=== PATIENT | male | born 1965 | race Caucasian/White ===

== ENCOUNTER 2020-04-14 09:26 | Outpatient (REF) | payer BC, SELFPAY | END 2020-04-14 09:27 | disposition home or self-care (01) | LOC: HO.LAB 09:26 | PROVIDERS: PCP Internal Medicine; Visit Provider Internal Medicine | DX: Z20.828 Contact with and (suspected) exposure to other viral communicable diseases (principal) | CPT/HCPCS: C9803; U0003 ==

== ENCOUNTER 2021-01-12 07:27 | Outpatient (REF) | payer BC, SELFPAY ==
--- NOTE | ~2021-01-12 | XR_ITS ---
EXAMINATION: XR ELBOW, RIGHT CLINICAL INFORMATION: Right elbow pain COMPARISON: None TECHNIQUE: AP, lateral, and oblique views of the right elbow. FINDINGS: The bones and soft tissues are normal. No fracture or joint effusion. Alignment is anatomic. Joint spaces are maintained. XR/XR elbow RT 2V IMPRESSION: Normal right elbow.
[2021-01-12 07:55] LABS: MANUAL DIFF FLAG NO
[2021-01-12 08:05] LABS: Estimated Average Glucose 105 mg/dL; Hemoglobin A1c % 5.3 %
[2021-01-12 08:08] LABS: Basophils Percent Auto 0.4 % (0-2); Eosinophils Absolute Auto 0.1 X10*3/uL (0.0-0.4); Eosinophils Percent Auto 2.7 % (0-4); Hemoglobin 14.3 g/dl (14.0-18.0); Imm Gran Abs Auto 0.01 X10*3/uL (0.00-0.03); Imm Gran Pct Auto 0.2 % (0.0-0.4); Lymphocytes Absolute Auto 1.7 X10*3/uL (1.2-4.9); Lymphocytes Percent Auto 34.2 % (20-40); Mean Corpuscular Hemoglobin 29.4 pg (27.0-33.0); Mean Corpuscular Volume 86.2 fL (80-98); Mean Platelet Volume 8.9 fL (9.4-12.4); Monocytes Absolute Auto 0.4 X10*3/uL (0.1-1.2); Monocytes Percent Auto 8.7 % (2-11); Neutrophils Absolute Auto 2.6 X10*3/uL (2.0-8.3); Neutrophils Percent Auto 53.8 % (45-73); Platelet Count 224 X10*3/uL (160-400); Red Blood Count 4.87 X10*6/uL (4.60-5.80); Red Cell Distribution Width 13.2 % (11.0-16.0); White Blood Count 4.9 X10*3/uL (4.8-10.8)
[2021-01-12 08:22] LABS: Alanine Aminotransferase 17 U/L (0-40); Albumin Level 4.2 g/dL (3.5-5.0); Alkaline Phosphatase 73 U/L (39-117); Anion Gap 11 (12-20); Aspartate Amino Transferase 13 U/L (5-37); Bilirubin Total 0.6 mg/dL (0.0-1.0); Blood Urea Nitrogen 19 mg/dL (9-16); Calcium 9.6 mg/dL (8.4-10.2); Carbon Dioxide 27 mmol/L (22-29); Chloride 106 mmol/L (96-108); Cholesterol 243 mg/dL; Estimated Glomerular Filt Rate > 60; Glucose Random 97 mg/dL (60-115); HDL Cholesterol 56 mg/dL; LDL Cholesterol Calculated 153 mg/dl; Potassium 4.9 mmol/L (3.3-5.1); Sodium 139 mmol/L (135-145); Total Protein 6.9 g/dL (6.5-8.0); Triglycerides 174 mg/dL
[2021-01-12 08:44] LABS: Free T4 (Free Thyroxine) 1.04 ng/dL (0.71-1.85); Prostate Specific Antigen Scr 0.68 ng/mL (<0.05-4.0); Thyroid Stimulating Hormone 1.04 uIU/mL (0.32-4.0)
[2021-01-12 08:59] LABS: Folate 11.2 ng/mL (> or = 4.0); Vitamin B12 504 pg/mL (200-900)
== END 2021-01-12 07:28 | disposition home or self-care (01) ==
LOC: HO.XRAY 07:27
PROVIDERS: PCP Internal Medicine; Visit Provider Internal Medicine
DX: R73.02 Impaired glucose tolerance (oral) (principal); E78.00 Pure hypercholesterolemia, unspecified; M25.521 Pain in right elbow
CPT/HCPCS: 36415; 73070; 80053; 80061; 82607; 82746; 83036; 84153; 84439; 84443; 85025

== ENCOUNTER 2022-02-12 09:58 | Outpatient (REF) | payer BC, SELFPAY ==
--- NOTE | ~2022-02-12 | XR_ITS ---
EXAMINATION: XR lumbar spine 2-3V CLINICAL INFORMATION: Reason for Exam M54.50 - Low back pain, unspecified COMPARISON: None TECHNIQUE: 3 views of the lumbar spine FINDINGS: 5 nonrib-bearing lumbar-type vertebral bodies. Vertebral body heights are maintained. Alignment is maintained. Mild multilevel degenerative disc disease with loss of disc space height and lower lumbosacral facet arthropathy. Paravertebral soft tissues are unremarkable. XR/XR lumbar spine 2-3V IMPRESSION: * Mild spondylosis of the lumbar spine, as above detailed.
== END 2022-02-12 09:59 | disposition home or self-care (01) ==
LOC: HO.XRAY 09:58
PROVIDERS: PCP Internal Medicine; Visit Provider Internal Medicine
DX: M54.50 Low back pain, unspecified (principal)
CPT/HCPCS: 72100

== ENCOUNTER 2022-03-08 10:00 | Outpatient (RCR) | payer BC, SELFPAY ==
--- NOTE | 2022-04-15 09:48 | MHC.PT.DC ---
[facility] [place] Office [place] Office [place] Office [address] Rudi Carvajal [address] [phone] F: [phone] F: [phone] F: [phone] F: [phone] Physical Therapy Discharge Report Diagnosis: Low back pain Date of Surgery: N/A Date of Evaluation: 01/16/22 Date of Discharge: 04/15/22 Treatments to Date: 12 Cancellations to Date: No Shows to Date: Discharge Status: Discharge Summary: At last attended visit he reports he was more sore and stiff. He has kept on low back stretches and core strength. Following treatment with traction he stands in lumbar neutral and reports pain is much less in his back compared to when he came into PT. Symptoms are suspicious for disc herniation and pt is to follow up with MD for MRI results. We have not hear from Manav to schedule additional visits so exact status is unknow. As he has not been to our office for greater than 30 days we will close the current chart and if he requires additional therapy we will re-evaluate at that time. Electronically signed by: Geneva Montgomery PT, DPT Please sign and return to therapist. Thank you for your referral.
== END 2022-04-15 09:48 | disposition home or self-care (01) ==
LOC: HO.PT 10:00
PROVIDERS: PCP Internal Medicine; Visit Provider Internal Medicine
DX: M54.6 Pain in thoracic spine (principal)
CPT/HCPCS: 97012; 97110; 97140; 97161; 97530

== ENCOUNTER 2022-03-08 17:54 | Outpatient (REF) | payer BC, SELFPAY ==
--- NOTE | ~2022-03-08 | MR_ITS ---
EXAMINATION: MR LUMBAR SPINE WITHOUT CONTRAST CLINICAL INFORMATION: 56-year-old with low back pain, unspecified. Self-reported history of back injuries. COMPARISON: None TECHNIQUE: MRI of the lumbar spine was obtained using routine sequences without contrast. FINDINGS: Coronal Alignment: Normal. Sagittal Alignment: Prominent lordotic curvature centered at L3-L4 with trace retrolisthesis at L2-L3 and L1-L2. No spondylolisthesis or spondylolysis. Lumbosacral Junction: Normal. 5 csw-mic-geqgrad lumbar-type vertebral bodies. Vertebral Bodies: Normal height. Disc Spaces and Endplates: Ehrr-ym-rqjxlrwd disc volume loss at L4-L5 and L5-S1 with disc desiccation and gwvv-ef-rmrfynoo spondylosis at these levels. Mild disc volume loss at L3-L4 with mild disc desiccation and mild spondylosis. Disc desiccation at L1-L2 and L2-L3 with mild disc space height loss at L2-L3 with Schmorl's nodes and moderate spondylosis. Spinal Canal: No abnormal developmental findings. Bone Marrow: No significant marrow-replacing process or bone marrow edema. Conus Medullaris: Terminates at T12. Morphology and signal is normal. Intradural Nerve Roots: Crowding of the intradural nerve roots at L3-L4 consistent with spinal stenosis. Otherwise within normal limits. L5-S1: Mild disc bulging asymmetric to the left without thecal sac encroachment. Rnoa-cz-hsjzgwwj left-sided and addbhvga-co-qsezex right-sided facet arthropathy without significant canal or neuroforaminal stenosis. L4-L5: Diffuse disc bulging and superimposed broad-based central disc protrusion with mild flattening of the ventral dural sac is noted. There is ligamentum flavum thickening with jrwbtbuc-bv-vsffsq bilateral facet arthropathy and mild central canal stenosis, with crowding of the subarticular zones bilaterally, with probable encroachment on the traversing left L5 nerve root in the subarticular zone. Moderate left-sided and cjyzszfr-px-gsgeyx right-sided neuroforaminal stenosis is noted with impingement on the exiting right L4 nerve root. Facet spurring contacts the exiting left L4 nerve root as well. L3-L4: Diffuse disc bulging with a superimposed right paramedian to subarticular extruded disc herniation with mild cephalad migration, with flattening of the ventral dural sac asymmetric to the right. Ligamentum flavum thickening and severe bilateral facet arthropathy is noted with a slightly prominent dorsal epidural fat pad. There is dnydbrat-xg-vpxksr central spinal canal stenosis with crowding of the intradural nerve roots and there is subarticular recess stenosis, right more than left, with disc herniation probably impinging on the traversing right L4 nerve root. There is probably some degree of compromise of the left L4 nerve root in the subarticular zone as well. There is thlfoqkm-ur-twdulo right-sided and moderate left-sided neuroforaminal stenosis, with impingement on the exiting right L3 nerve root and to a lesser degree the left L3 nerve root. L2-L3: Trace retrolisthesis at this level, with mild disc bulging and a superimposed left-sided foraminal/extraforaminal disc herniation. There is ligamentum flavum thickening, with mild right-sided and zcktclci-gp-szeuat left-sided facet arthrosis without significant canal stenosis. There is mild foraminal narrowing bilaterally without exiting neural impingement. L1-L2: Trace retrolisthesis noted with slight flattening of the ventral dural sac and mild left-sided facet arthrosis without significant canal stenosis. Mild foraminal narrowing noted bilaterally without neural impingement. T12-L1: Normal disc contour. Qztf-pd-tntrgcka facet arthrosis, left more than right, without canal or neuroforaminal stenosis. There is urkc-kj-sskrwxcm facet arthropathy right more than left at T11-T12. Paraspinal/Retroperitoneal: The paravertebral soft tissues appear unremarkable. There are bony productive changes along the anterior margins of the SI joints bilaterally, left more than right with bridging osteophytosis. MR/MR lumbar spine wo con IMPRESSION: 1. Somewhat exaggerated lordotic curvature noted, with trace degrees of retrolisthesis at L1-L2 and L2-L3 without spondylolisthesis or spondylolysis. 2. Multilevel DDD and spondylosis as detailed by level above, with multilevel disc bulging and disc herniations associated with extensive multilevel bilateral facet arthropathy and multilevel ligamentum flavum thickening. There is rgmhymcq-oo-vhgopb spinal canal stenosis at L3-L4 with crowding of the intradural nerve roots and mild spinal canal stenosis at L4-L5. Bilateral subarticular recess stenosis is noted at these levels with a right subarticular disc herniation at L3-L4 likely impinging on the traversing right L4 nerve root and left-sided subarticular stenosis impinging on the traversing left L5 nerve root. 3. Multilevel bilateral neuroforaminal stenosis as detailed by level above with impingement on the exiting right L3 and L4 nerve roots and to a lesser degree the left L3 and L4 nerve roots. See above for details.
--- NOTE | ~2022-03-08 | XR_ITS ---
EXAMINATION: XR ORBITS CLINICAL INFORMATION: Pre-MRI. COMPARISON: None. TECHNIQUE: Chacko (gaze up and gaze down) and lateral views of the orbits were obtained. FINDINGS: There is no fracture. No bone, joint or soft tissue abnormality is demonstrated. The sinuses are clear, without mucosal thickening or air-fluid level. No free radiopaque foreign body seen. XR/XR pre mri screening IMPRESSION: 1. Unremarkable examination of the orbits pre-MRI, without free radiopaque foreign body seen.
== END 2022-03-08 17:55 | disposition home or self-care (01) ==
LOC: HO.MRI 17:54
PROVIDERS: Visit Provider Internal Medicine
DX: M54.50 Low back pain, unspecified (principal); M47.816 Spondylosis without myelopathy or radiculopathy, lumbar region; M51.36 Other intervertebral disc degeneration, lumbar region; M48.061 Spinal stenosis, lumbar region without neurogenic claudication
CPT/HCPCS: 72148

== ENCOUNTER 2022-04-13 07:41 | Emergency (ER) | payer BC, SELFPAY ==
[2022-04-13 07:45] VITALS: BP 133/87; PULSE 62; RESP 18; TEMP 36.7; O2SAT 99; BMI 28.8
--- NOTE | 2022-04-13 08:01 | ED.GENADULT ---
HPI - General Adult General Chief complaint: Skin/Abscess/Foreign Body Stated complaint: quest of hernia Time Seen by Provider: 04/13/22 07:58 Source: patient Mode of arrival: ambulatory Limitations: no limitations History of Present Illness HPI narrative: Patient is a 56 yo assigned male at w/ no significant PMHx presents w/ a 10 day hx of a groin lump. He reports that it came about spontaneously w/ no known hx of cut or injury to the area. He endorses having pain in the area while walking around but reports that the pain goes away when he is at rest. He has not used any interventions to help w/ his symptoms. He reports that he was diagnosed w/ an incidental inguinal hernia 2-3 years ago for which he has not had any complications or symptoms from. He denies any recent fevers, chills, cough, runny nose, sore throat, SOB, or chest pain. He states that he has never had anything like this in the past. He denies any IV drug use. Onset (ago): day(s) (109) Location: pelvis Radiation: non-radiation Severity: mild Severity scale (1-10): 2 Quality: dull Pain Consistency: intermittent Relieving factors: none Exacerbating factors: none Associated symptoms: denies other symptoms Treatments prior to arrival: none Related Data Previous Rx's Medication Instructions Recorded cyclobenzaprine 10 mg tablet 10 mg PO BEDTIME #14 tabs 12/24/21 meloxicam 15 mg tablet 15 mg PO DAILY 30 days #30 tabs 02/12/22 Allergies Allergy/AdvReac Type Severity Reaction Status Date / Time No Known Allergies Allergy Verified 02/12/22 09:33 Review of Systems Constitutional: Constitutional: Reports no additional constitutional complaints, Denies chills, Denies fever(s) and Denies night sweats Eyes: Eyes: Reports no additional eye complaints ENT: Denies dizziness Cardiovascular: Cardiovascular: Reports no additional cardiovascular complaints, Denies chest pain, Denies lightheadedness and Denies dyspnea Respiratory: Respiratory: Reports no additional respiratory complaints and Denies dyspnea Gastrointestinal: Gastrointestinal: Reports no additional gastrointestinal complaints and Denies abdominal pain Genitourinary: Genitourinary: Reports no additional male genitourinary complaints, Denies hematuria, Denies dysuria and Denies urinary urgency Musculoskeletal: Musculoskeletal: Reports no additional musculoskeletal complaints Integumentary/Breasts: Comments: small area of redness to upper groin Neurologic: Denies dizziness Psychiatric: Psychiatric: Reports no additional psychiatric complaints Endocrine: Endocrine: Reports no additional endocrine complaints Hematologic/Lymphatic: Hematologic/Lymphatic: Reports no additional hematologic/lymphatic complaints Allergic/Immunologic: Allergic/Immunologic: Reports no additional allergic/immunologic complaints [facility] Past Medical History Attestation statement: The following information was validated with the patient. Source: old records reviewed Medical History Constipation DDD (degenerative disc disease), thoracolumbar DVT (deep venous thrombosis) GERD (gastroesophageal reflux disease) Hypercholesterolemia Impaired glucose tolerance Lower thoracic back pain Vitamin D deficiency Surgical History Rupture of left Achilles tendon Family History Family History Father Esophageal cancer Maternal Grandfather Lung cancer Social History Social History Housing: House Alcohol intake: current Patient Tobacco Use Status: Never used Tobacco e-Cigarette/Vaping Use: Never Used Second Hand Smoke Exposure: No Advance Directives: No Advance Directives Information Provided: No service: No Current occupational status: employed Cognitive needs: No Hearing needs: No Vision needs: Yes Physical Exam ED Vital Signs: Vital Signs - 24 hr 04/13/22 07:45 Temperature 98.1 F Pulse Rate 62 Respiratory Rate 18 Blood Pressure 133/87 Pulse Oximetry 99 Oxygen Delivery Method Room Air BMI result Body Mass Index 28.8 Const General: healthy appearing, comfortable and no acute distress Nutritional Appearance: average body habitus and well nourished Orientation/consciousness: patient oriented x3 Limitations: no limitations [facility] Head: Yes normal to inspection Ears: hearing grossly normal bilaterally General nose exam: Normal external nose present Face and sinus: Yes normal facial exam, No abrasion and No laceration Mouth: Normal oral and palatal mucosa present, no drooling and no muffled voice Eyes General: appearance normal, both eyes and all related structures Periorbital: periorbital findings normal Eyelids: Yes eyelids normal Conjunctivae: conjunctivae normal Pupils: Equal, round and reactive pupils present EOM: EOMs intact bilaterally Neck Neck: Yes normal visual inspection, Yes full ROM and Yes no lymphadenopathy Chest Chest palpation & inspection: normal inspection of the chest Resp Effort & Inspection: normal respiratory effort and able to speak in complete sentences Auscultation: clear to auscultation bilaterally Cardio Rate: regular rate Rhythm: regular rhythm GI Inspection: Yes normal to inspection Palpation (GI): Soft to palpation, not firm, nontender, no guarding and not rigid Male General Exam: Yes normal external exam, Yes erythema (area of induration and warmth to palpation ), No hernia and No inguinal lymphadenopathy Male genitals images: 1. [id number] circular area of erythema and induration Skin General skin exam: no rashes or lesions noted (no other lesions noted except as above) Neuro General: patient oriented x3 Cranial nerves: Yes Equal, round and reactive pupils present Cognition (Neuro): normal cognition Motor exam (neuro): 5/5 motor strength present throughout Sensory Exam: Normal double simultaneous stimulation for sensation Coordination: mljpye-zr-tyxm test normal Extrem General: Yes normal to inspection, Yes full ROM and Yes capillary refill normal Psych Appearance: grossly normal Mental Status: mental status grossly normal Affect: normal affect Attitude: cooperative Thought process: Normal thought process present Thought content: Normal thought content present Insight: Good insight present (Psych) Medical Decision Making MDM Narrative Medical decision making narrative: Pt is 56 yo assigned male at w/ a 10 day hx of a groin lesion that is painful w/ walking and other movement. His physical exam is most consistent w/ a groin abscess vs. cyst. The lesion is approx 2cm x 2cm located along the waist band of his underwear. The lesion is erythematous and indurated w/o evidence of a pustular head and no area of fluctuance. Pt was educated on the diagnosis and instructed to apply warm compresses to the area and not attempt to rupture it on his own when it does come to a head. I stressed the importance of the patient following up with his primary care provider. I stressed the importance of the patient returning to the emergency department immediately if his symptoms were to worsen or if he were to develop any dizziness, shortness of breath, difficulty breathing, chest pain, blurry vision, loss of vision, nausea, vomiting, abdominal pain, fever, chills, back pain, or any other complaints. Patient verbalized agreement and understanding with this treatment plan and discharge. Discharge Plan Discharge Clinical Impression: Cyst Patient Disposition: Home, Self-Care Instructions: Cyst (ED) Additional Instructions: Apply warm compresses to the area. Follow up with your primary care provider. Return to the emergency department immediately if your symptoms worsen or if you develop any dizziness, shortness of breath, difficulty breathing, chest pain, blurry vision, loss of vision, nausea, vomiting, abdominal pain, fever, chills, back pain, or any other complaints. Prescriptions: No Action cyclobenzaprine 10 mg tablet 10 mg PO BEDTIME Qty: 14 0RF meloxicam 15 mg tablet 15 mg PO DAILY 30 Days Qty: 30 0RF Referrals: Po,José Miguel Prabhakar MD [Primary Care Provider] - Print Language: Maltese
== END 2022-04-13 09:01 | disposition home or self-care (01) ==
PROVIDERS: Emergency Provider Emergency Medicine; PCP Internal Medicine
DX: L02.214 Cutaneous abscess of groin (principal)
CPT/HCPCS: 99282

== ENCOUNTER 2022-04-24 16:20 | Outpatient (REF) | payer BC, SELFPAY | END 2022-04-24 16:21 | disposition home or self-care (01) | LOC: HO.LNP 16:20 | PROVIDERS: Visit Provider Surgery | DX: L02.211 Cutaneous abscess of abdominal wall (principal); L72.3 Sebaceous cyst | CPT/HCPCS: 10060; 87070; 87205 ==

== ENCOUNTER → 2022-05-10 11:03 | Outpatient (BNVA) | payer BC, SELFPAY | PROVIDERS: PCP Internal Medicine; Referring Provider Internal Medicine; Visit Provider Surgery | DX: L02.91 Cutaneous abscess, unspecified (principal) ==

== ENCOUNTER → 2022-05-15 09:42 | Outpatient (BNVA) | payer BC, SELFPAY | PROVIDERS: PCP Internal Medicine; Referring Provider Internal Medicine; Visit Provider Surgery | DX: L02.211 Cutaneous abscess of abdominal wall (principal) ==

== ENCOUNTER → 2022-07-09 09:20 | Outpatient (BNVA) | payer BC, SELFPAY | PROVIDERS: PCP Internal Medicine; Visit Provider Surgery | DX: Z13.89 Encounter for screening for other disorder (principal) ==

== ENCOUNTER 2022-07-30 08:44 | Outpatient (REF) | payer BC, SELFPAY ==
[2022-07-30 08:51] LABS: MANUAL DIFF FLAG NO
[2022-07-30 09:21] LABS: Basophils Percent Auto 0.6 % (0-2); Eosinophils Absolute Auto 0.1 X10*3/uL (0.0-0.4); Eosinophils Percent Auto 2.6 % (0-4); Hematocrit 44.4 % (42.0-52.0); Hemoglobin 15.1 g/dl (14.0-18.0); Lymphocytes Absolute Auto 1.8 X10*3/uL (1.2-4.9); Lymphocytes Percent Auto 37.8 % (20-40); Mean Corpuscular Hemoglobin 29.1 pg (27.0-33.0); Mean Corpuscular Volume 85.5 fL (80.0-98.0); Mean Platelet Volume 9.1 fL (9.4-12.4); Monocytes Absolute Auto 0.4 X10*3/uL (0.1-1.2); Neutrophils Absolute Auto 2.4 x10*3/uL (2.0-8.3); Platelet Count 224 X10*3/uL (160-400); Red Blood Count 5.19 X10*6/uL (4.60-5.80); Red Cell Distribution Width 13.5 % (11.0-16.0); White Blood Count 4.6 X10*3/uL (4.8-10.8)
[2022-07-30 09:46] LABS: Alanine Aminotransferase 14 U/L (0-40); Albumin Level 4.4 g/dL (3.5-5.0); Alkaline Phosphatase 69 U/L (39-117); Anion Gap 14 (12-20); Aspartate Amino Transferase 15 U/L (5-37); Bilirubin Total 1.1 mg/dL (0.0-1.0); Blood Urea Nitrogen 17 mg/dL (9-16); Calcium 9.1 mg/dL (8.4-10.2); Carbon Dioxide 28 mmol/L (22-29); Chloride 107 mmol/L (96-108); Cholesterol 222 mg/dL; Estimated Glomerular Filt Rate > 60; Glucose Random 83 mg/dL (60-115); HDL Cholesterol 54 mg/dL; LDL Cholesterol Calculated 146 mg/dl; Sodium 144 mmol/L (135-145); Total Protein 6.8 g/dL (6.5-8.0); Triglycerides 110 mg/dL
[2022-07-30 09:56] LABS: Estimated Average Glucose 108 mg/dL; Hemoglobin A1c % 5.4 %
[2022-07-30 10:11] LABS: Folate 12.8 ng/mL (> or = 4.0); Free T4 (Free Thyroxine) 0.94 ng/dL (0.71-1.85); Prostate Specific Antigen Scr 0.96 ng/mL (<0.05-4.0); Vitamin B12 410 pg/mL (200-900)
== END 2022-07-30 08:45 | disposition home or self-care (01) ==
LOC: HO.LAB 08:44
PROVIDERS: PCP Internal Medicine; Visit Provider Internal Medicine
DX: Z12.5 Encounter for screening for malignant neoplasm of prostate (principal); K21.9 Gastro-esophageal reflux disease without esophagitis; R73.02 Impaired glucose tolerance (oral); E78.00 Pure hypercholesterolemia, unspecified
CPT/HCPCS: 36415; 80053; 80061; 82607; 82746; 83036; 84153; 84439; 84443; 85025

== ENCOUNTER 2023-01-15 10:11 | Outpatient (AMB) | payer BC, SELFPAY ==
[2023-01-15 10:18] VITALS: BP 118/74; PULSE 55; O2SAT 98; BMI 26.5
--- NOTE | 2023-01-15 10:18 | A.OFFPC_ITS ---
Vital Signs 01/15/23 10:18 Height 5 ft 9 in Weight 179 lb 4 oz BMI 26.5 BP 118/74 Blood Pressure Location Lt brachial Position Sitting Pulse 55 Pulse Source Pulse Oximeter Pulse Oximetry (%) 98 Oxygen Delivery Method Room Air Intake Visit Reasons: Hypercholesterolemia Intake Note: Pt is here for F/U on Hypercholesterolemia. Vehicle Service Attendant Required: No Accompanied by: Self / Same As Patient Allergies No Known Allergies Allergy (Verified 01/15/23 10:29) Tobacco use date assessed: 07/05/22 Dental Screening Dental Screen Date: 01/15/23 Did you have a dental visit in the last 12 months?: Yes Did you have a dental problem in the last 6 months where you did not have access to dental care?: No Was dental information given to patient?: Patient has dentist HPI Hypercholesterolemia HPI Details 57-year-old overweight male with GERD impaired glucose tolerance hypercholesterolemia low back pain coming in for follow-up. Patient was last seen in June 2022. Colonoscopy was last done in 2016 review of the notes in June was seen by surgeon for a necrotic groin infected sebaceous cyst. Well-healed excision site on the back patient had seborrheic keratosis no evidence of inclusion cyst. Noted an irregular skin lesion on the upper back between the shoulder blades question of melanoma in May patient had cervical spine procedure under neurosurgeon metallic probe over the L3-L4 interspace.. seen dermatology scan - biopsy done negative but will need ff up scan- [place] derm. [facility] Medical History Constipation DDD (degenerative disc disease), thoracolumbar DVT (deep venous thrombosis) GERD (gastroesophageal reflux disease) Hypercholesterolemia Impaired glucose tolerance Lower thoracic back pain Vitamin D deficiency Surgical History Rupture of left Achilles tendon Family History Father Esophageal cancer Maternal Grandfather Lung cancer Paternal Grandmother CVA (cerebral vascular accident) Social History Housing: House Alcohol intake: current Patient Tobacco Use Status: Never used Tobacco e-Cigarette/Vaping Use: Never Used Second Hand Smoke Exposure: No service: No Current occupational status: employed Cognitive needs: No Hearing needs: No Vision needs: Yes Questionnaire Thrive Questionnaire Date Thrive assessed: 07/05/22 DARLENE-7 AMB Questionnaire DARLENE-7 Date DARLENE - 7 assessed: 07/05/22 Source: Developed by Drs. Francisco J Meyer, Sosa Rivera, Jakob Barrientos and colleagues, with an educational ramos from [employer]. Physical exam (Primary Care) Vital Signs: Last Vital Signs Pulse 55 01/15/23 10:18 BP 118/74 01/15/23 10:18 Pulse Ox 98 01/15/23 10:18 Oxygen Delivery Method Room Air 01/15/23 10:18 BMI result Body Mass Index 26.5 Tobacco/Smoking Status: Tobacco use Status Tobacco use date assessed 07/05/22 01/15/23 10:23 Patient Tobacco Use Status Never used Tobacco 01/15/23 10:23 e-Cigarette/Vaping Use Never Used 01/15/23 10:23 Thrive Assessment: Date of Thrive Assessment Date Thrive assessed 07/05/22 01/15/23 10:23 Const General: alert; No acute distress Eyes Conjunctivae: conjunctivae normal Resp Auscultation: clear to auscultation bilaterally Cardio Rate: regular rate Rhythm: regular rhythm GI Inspection: Yes normal to inspection Extrem General: Yes normal to inspection and No edema Assessment and Plan Assessment & Plan (1) Hypercholesterolemia: Code(s): E78.00 - Pure hypercholesterolemia, unspecified Plan: Avoid fried foods, chicken skin, eggs, butter margarine, pastries and meat. Be it pork or beef they have a lot of cholesterol LDL goal of less than 130 and triglyceride of less than 150. July 2022 last blood work since then patient has lost a lot of weight intentionally and is doing good. Will have to retest (2) Impaired glucose tolerance: Code(s): R73.02 - Impaired glucose tolerance (oral) Plan: Decrease the amount of carbohydrate intake, pasta, bread, rice and potatoes are all sugar and that is aside from all the sweet stuff, remember that fruits are good but they are Sweet also. (3) GERD (gastroesophageal reflux disease): Code(s): K21.9 - Gastro-esophageal reflux disease without esophagitis Plan: Avoid the foods that causes that usually spicy foods, tomato products, juices, coffee, soda and foods that your sensitive to. After eating do not lie down, allow 3-4 hours before in lie down. And keep the head of bed above 30 degrees to avoid the acid from going up. (4) Overweight (BMI 25.0-29.9): Code(s): E66.3 - Overweight Plan: Diet and exercise (5) Radicular low back pain: Comment: Februaryomewhat exaggerated lordotic curvature noted, with trace degrees of retrolisthesis at L1-L2 and L2-L3 without spondylolisthesis or spondylolysis. 2. Multilevel DDD and spondylosis as detailed by level above, with multilevel disc bulging and disc herniations associated with extensive multilevel bilateral facet arthropathy and multilevel ligamentum flavum thickening. There is xyvhbxqb-gt-anvhmo spinal canal stenosis at L3-L4 with crowding of the intradural nerve roots and mild spinal canal stenosis at L4-L5. Bilateral subarticular recess stenosis is noted at these levels with a right subarticular disc herniation at L3-L4 likely impinging on the traversing right L4 nerve root and left-sided subarticular stenosis impinging on the traversing left L5 nerve root. 3. Multilevel bilateral neuroforaminal stenosis as detailed by level above with impingement on the exiting right L3 and L4 nerve roots and to a lesser degree the left L3 and L4 nerve roots. See above for details. Code(s): M54.10 - Radiculopathy, site unspecified Plan: Patient had procedure under neurosurgeon in May 2022. Patient has been very active and doing really good (6) Multiple pigmented nevi: Code(s): D22.9 - Melanocytic nevi, unspecified Plan: Dermatology referral biopsy done negative results continue to follow-up for surveillance Orders: Orders Comprehensive Met. Panel Today E78.00 - Pure hypercholesterolemia, unspecified Lipid Panel Today E78.00 - Pure hypercholesterolemia, unspecified Prostate Specific Antigen Scr Today E78.00 - Pure hypercholesterolemia, unspecified Free T4 (Free Thyroxine) Today E78.00 - Pure hypercholesterolemia, unspecified Thyroid Stimulating Hormone Today E78.00 - Pure hypercholesterolemia, unspecified Complete Blood Count Auto Diff Today E78.00 - Pure hypercholesterolemia, unspecified Hemoglobin A1c Today R73.02 - Impaired glucose tolerance (oral) Coding Level of Care Code Est Pt Level 4 (67711) Diagnoses Hypercholesterolemia E78.00 Impaired glucose tolerance R73.02 GERD (gastroesophageal reflux disease) K21.9 Overweight (BMI 25.0-29.9) E66.3 Radicular low back pain M54.10 Multiple pigmented nevi D22.9
== END 2023-01-15 10:53 | disposition home or self-care (01) ==
PROVIDERS: PCP Internal Medicine; Visit Provider Internal Medicine
DX: E78.00 Pure hypercholesterolemia, unspecified (principal); R73.02 Impaired glucose tolerance (oral); K21.9 Gastro-esophageal reflux disease without esophagitis; E66.3 Overweight; M54.10 Radiculopathy, site unspecified; D22.9 Melanocytic nevi, unspecified
CPT/HCPCS: 99214

== ENCOUNTER 2023-07-07 07:38 | Outpatient (REF) | payer BC, SELFPAY ==
[2023-07-07 07:54] LABS: MANUAL DIFF FLAG NO
[2023-07-07 08:23] LABS: Basophils Percent Auto 0.5 % (0-2); Eosinophils Absolute Auto 0.2 X10*3/uL (0.0-0.4); Eosinophils Percent Auto 3.2 % (0-4); Hematocrit 43.9 % (42.0-52.0); Imm Gran Abs Auto 0.03 X10*3/uL (0.00-0.03); Imm Gran Pct Auto 0.5 % (0.0-0.4); Lymphocytes Absolute Auto 1.8 X10*3/uL (1.2-4.9); Mean Corpuscular HGB Conc 34.2 g/dl (31.0-36.0); Mean Corpuscular Hemoglobin 29.4 pg (27.0-33.0); Mean Corpuscular Volume 86.1 fL (80.0-98.0); Mean Platelet Volume 8.6 fL (9.4-12.4); Monocytes Absolute Auto 0.5 X10*3/uL (0.1-1.2); Neutrophils Absolute Auto 3.2 x10*3/uL (2.0-8.3); Neutrophils Percent Auto 55.8 % (45-73); Platelet Count 245 X10*3/uL (160-400); Red Cell Distribution Width 13.2 % (11.0-16.0); White Blood Count 5.7 X10*3/uL (4.8-10.8)
[2023-07-07 08:37] LABS: Estimated Average Glucose 94 mg/dL; Hemoglobin A1c % 4.9 % (<6.0)
[2023-07-07 09:12] LABS: Alanine Aminotransferase 17 U/L (0-40); Albumin Level 4.2 g/dL (3.5-5.0); Alkaline Phosphatase 65 U/L (39-117); Anion Gap 14 (12-20); Aspartate Amino Transferase 17 U/L (5-37); Bilirubin Total 0.8 mg/dL (0.0-1.0); Blood Urea Nitrogen 19 mg/dL (9-16); Calcium 9.6 mg/dL (8.4-10.2); Carbon Dioxide 24 mmol/L (22-29); Chloride 104 mmol/L (96-108); Cholesterol 230 mg/dL (<200); Estimated Glomerular Filt Rate > 60; Glucose Random 87 mg/dL (60-115); HDL Cholesterol 53 mg/dL (>40); LDL Cholesterol Calculated 151 mg/dL (<100); Potassium 4.4 mmol/L (3.3-5.1); Sodium 138 mmol/L (135-145); Total Protein 7.5 g/dL (6.5-8.0); Triglycerides 131 mg/dL (<150)
[2023-07-07 09:17] LABS: Prostate Specific Antigen Scr 0.86 ng/mL (<0.05-4.0)
[2023-07-07 09:19] LABS: Free T4 (Free Thyroxine) 0.91 ng/dL (0.71-1.85)
== END 2023-07-07 07:39 | disposition home or self-care (01) ==
LOC: HO.LAB 07:38
PROVIDERS: PCP Internal Medicine; Visit Provider Internal Medicine
DX: Z12.5 Encounter for screening for malignant neoplasm of prostate (principal); E78.00 Pure hypercholesterolemia, unspecified; R73.02 Impaired glucose tolerance (oral)
CPT/HCPCS: 36415; 80053; 80061; 83036; 84153; 84439; 84443; 85025

== ENCOUNTER 2023-07-10 08:55 | Outpatient (AMB) | payer BC, SELFPAY ==
[2023-07-10 09:04] VITALS: BP 140/82; PULSE 63; O2SAT 98; BMI 27.2
--- NOTE | 2023-07-10 09:04 | MHC.PC.OV ---
Vital Signs 07/10/23 09:04 Height 5 ft 9 in Weight 184 lb BMI 27.2 BP 140/82 H Blood Pressure Location Lt brachial Position Sitting Pulse 63 Pulse Source Pulse Oximeter Pulse Oximetry (%) 98 Oxygen Delivery Method Room Air Intake Visit Reasons: physical Intake Note: Patient is here today for a physical. Image Editor Required: No Allergies No Known Allergies Allergy (Verified 07/10/23 09:04) Medication List - Last Reconciled 07/10/23 by José Miguel Castro MD No Known Home Meds Tobacco use date assessed: 07/10/23 Dental Screening Dental Screen Date: 07/10/23 Did you have a dental visit in the last 12 months?: Yes Did you have a dental problem in the last 6 months where you did not have access to dental care?: No Was dental information given to patient?: Patient has dentist HPI physical HPI Details 58-year-old overweight male with impaired glucose tolerance hypercholesterolemia GERD history of low back pain status post surgery coming in for physical exam last seen in December 2022. Colonoscopy last done in June 2016. mom got diagnoses with colon cancer aand the pateint will be seeing Dr. Armstrong July 21, 2023. insomnia and snoring. tiredne sleeping while watching tc, after eating , no nap. , no sleep in the car. [facility] Medical History (Updated 07/10/23 @ 09:41 by José Miguel Castro MD) Lower thoracic back pain DDD (degenerative disc disease), thoracolumbar DVT (deep venous thrombosis) GERD (gastroesophageal reflux disease) Vitamin D deficiency Constipation Impaired glucose tolerance Hypercholesterolemia Surgical History (Updated 07/10/23 @ 09:51 by José Miguel Castro MD) H/O lumbosacral spine surgery Rupture of left Achilles tendon Family History (Updated 07/10/23 @ 09:32 by José Miguel Castro MD) Father Esophageal cancer Maternal Grandfather Lung cancer Paternal Grandmother CVA (cerebral vascular accident) Mother Colon cancer, Onset Age: 80 Social History (Updated 07/10/23 @ 09:40 by José Miguel Castro MD) Housing: House Alcohol intake: current Comment: once a month 2 beers Patient Tobacco Use Status: Never used Tobacco e-Cigarette/Vaping Use: Never Used Second Hand Smoke Exposure: No service: No Current occupational status: employed Cognitive needs: No Hearing needs: No Vision needs: Yes Questionnaire PHQ-9 Over the last 2 weeks, how often have you been bothered by any of the following problems? 1. Little interest or pleasure in doing things: not at all 2. Feeling down, depressed, or hopeless: not at all 3. Trouble falling or staying asleep, or sleeping too much: not at all 4. Feeling tired or having little energy: not at all 5. Poor appetite or overeating: not at all 6. Feeling bad about yourself - or that you are a failure or have let yourself or your family down: not at all 7. Trouble concentrating on things, such as reading the newspaper or watching television: not at all 8. Moving or speaking so slowly that other people could have noticed. Or the opposite - being so fidgety or restless that you have been moving around a lot more than usual: not at all 9. Thoughts that you would be better off or of hurting yourself in some way: not at all Total score: 0 Depression Screening Interpretation: Negative Depression Screening Done: Yes Source: Developed by Drs. Francisco J Meyer, Sosa Rivera, Jakob Barrientos and colleagues, with an educational ramos from [employer]. Thrive Questionnaire Date Thrive assessed: 07/05/22 I am a: Patient What is your living situation today?: I have a steady place to live Within the past 12 months, did the food you bought not last and you didn't have the money to get more?: Never true Within the past 12 months, did you worry whether your food would run out before you got money to buy more?: Never true Do you have trouble paying for medicines?: No Do you have trouble getting transportation to medical appointments?: No Do you have trouble paying your heating and electricity bill?: No Do you have trouble taking care of your child, family member or friend?: No Do you have trouble with day-to-day activities such as bathing, preparing meals, shopping, managing finances, etc.?: No Are you currently unemployed and looking for a job?: No Are you interested in more education?: No Please select the resources that you would like help with: None THRIVE Score: 0 AUDIT C Alcohol Use Questionnaire (AUDIT-C) 1. How often do you have a drink containing alcohol?: Monthly or less 2. How many drinks containing alcohol do you have on a typical day when you are drinking?: 1 or 2 3. How often do you have six or more drinks on one occasion?: Never Total Score: 1 DARLENE-7 AMB Questionnaire DARLENE-7 Date DARLENE - 7 assessed: 07/10/23 Feeling nervous, anxious, or on edge: 0 = Not at all Not being able to stop or control worryin = Not at all Worrying too much about different things: 0 = Not at all Trouble relaxin = Not at all Being so restless that it is hard to sit still: 0 = Not at all Becoming easily annoyed or irritable: 0 = Not at all Feeling afraid as if something awful might happen: 0 = Not at all Total DARLENE-7 score (0-4 normal; 5-9 mild; 10-14 moderate; 15-21 severe): 0 Source: Developed by Drs. Francisco J Meyer, Sosa Rivera, Jakob Barrientos and colleagues, with an educational ramos from [employer]. Review of Systems Const Denies poor appetite and Denies weakness Eyes Denies no additional complaints ENT Reports Normal hearing present, Denies dizziness, Denies nasal congestion, Denies tinnitus and Denies sore throat Card Denies chest pain, Denies syncope, Denies rapid heart rate and Denies dyspnea Resp Denies cough and Denies dyspnea GI Denies change in stool character, Reports constipation, Denies diarrhea, Denies nausea and Denies vomiting Denies dysuria and Denies urinary frequency Neuro Reports Normal hearing present, Denies confusion, Denies dizziness, Denies syncope and Denies weakness Psych Denies confusion Physical exam (Primary Care) Vital Signs: Last Vital Signs Pulse 63 07/10/23 09:04 BP 140/82 H 07/10/23 09:04 Pulse Ox 98 07/10/23 09:04 Oxygen Delivery Method Room Air 07/10/23 09:04 BMI result Body Mass Index 27.2 Tobacco/Smoking Status: Tobacco use Status Tobacco use date assessed 07/10/23 07/10/23 09:06 Patient Tobacco Use Status Never used Tobacco 07/10/23 09:06 e-Cigarette/Vaping Use Never Used 07/10/23 09:06 PHQ-9: PHQ-9 Score PHQ-9: Total score 0 07/10/23 09:12 Depression Screening Interpretation: Negative Thrive Assessment: Date of Thrive Assessment Date Thrive assessed 07/05/22 07/10/23 09:06 Const General: No confusion Orientation/consciousness: No confusion HENMT Head: Yes normocephalic Ears: external ears normal and TM's normal bilaterally Face and sinus: Yes normal facial exam Mouth: moist mucous membranes Throat: Yes tonsils normal Eyes Conjunctivae: conjunctivae normal Pupils: Equal, round and reactive pupils present and Pupil accommodation reflex normal Direct Ophthalmoscopy: normal light reflex Neck Neck: No lymphadenopathy Thyroid: Thyroid normal Chest Chest palpation & inspection: normal inspection of the chest Resp Effort & Inspection: normal respiratory effort and no audible wheezes Auscultation: clear to auscultation bilaterally, no crackles, no wheezes and lung sounds not diminished Cardio Rate: regular rate Rhythm: regular rhythm Peripheral pulses: radial pulses present and dorsalis pedis present GI Palpation (GI): no masses Auscultation: normal bowel sounds and normoactive bowel sounds Rectal Exam - Male: Yes deferred Skin General skin exam: no rashes or lesions noted Rashes: no rashes Neuro General: No confusion Cranial nerves: Yes Equal, round and reactive pupils present and Yes Normal hearing present Cognition (Neuro): normal cognition Gait exam (Neuro): Normal gait present Motor exam (neuro): 5/5 motor strength present throughout Deep tendon reflexes (DTR's): Right brachioradialis reflex intensity grade: 2+, Left brachioradialis reflex intensity grade: 2+, Right patellar reflex intensity grade: 2+ and Left patellar reflex intensity grade: 2+ Extrem General: No edema Assessment and Plan Assessment & Plan (1) Annual physical exam: Code(s): Z00.00 - Encounter for general adult medical examination without abnormal findings (2) Impaired glucose tolerance: Code(s): R73.02 - Impaired glucose tolerance (oral) Plan: Decrease the amount of carbohydrate intake, pasta, bread, rice and potatoes are all sugar and that is aside from all the sweet stuff, remember that fruits are good but they are Sweet also. (3) Hypercholesterolemia: Code(s): E78.00 - Pure hypercholesterolemia, unspecified Plan: Avoid fried foods, chicken skin, eggs, butter margarine, pastries and meat. Be it pork or beef they have a lot of cholesterol LDL goal of less than 130 and triglyceride of less than 150. (4) GERD (gastroesophageal reflux disease): Code(s): K21.9 - Gastro-esophageal reflux disease without esophagitis Plan: Avoid the foods that causes that usually spicy foods, tomato products, juices, coffee, soda and foods that your sensitive to. After eating do not lie down, allow 3-4 hours before in lie down. And keep the head of bed above 30 degrees to avoid the acid from going up. (5) Overweight (BMI 25.0-29.9): Code(s): E66.3 - Overweight Plan: Diet and exercise (6) Generalized anxiety disorder: Code(s): F41.1 - Generalized anxiety disorder Plan: Stable (7) Blood pressure elevated without history of HTN: Code(s): R03.0 - Elevated blood-pressure reading, without diagnosis of hypertension Orders: Orders Comprehensive Met. Panel 3 Months E78.00 - Pure hypercholesterolemia, unspecified Hemoglobin A1c 3 Months E78.00 - Pure hypercholesterolemia, unspecified Lipid Panel 3 Months E78.00 - Pure hypercholesterolemia, unspecified Coding Level of Care Code Est Pt Prev Care 40-64y(69844) Diagnoses Annual physical exam Z00.00 Impaired glucose tolerance R73.02 Hypercholesterolemia E78.00 GERD (gastroesophageal reflux disease) K21.9 Overweight (BMI 25.0-29.9) E66.3 Generalized anxiety disorder F41.1 Blood pressure elevated without history of HTN R03.0
== END 2023-07-10 10:04 | disposition home or self-care (01) ==
PROVIDERS: Visit Provider Internal Medicine
DX: Z00.00 Encounter for general adult medical examination without abnormal findings (principal); R73.02 Impaired glucose tolerance (oral); E78.00 Pure hypercholesterolemia, unspecified; K21.9 Gastro-esophageal reflux disease without esophagitis; E66.3 Overweight; F41.1 Generalized anxiety disorder; R03.0 Elevated blood-pressure reading, without diagnosis of hypertension
CPT/HCPCS: 99396

== ENCOUNTER 2023-08-29 08:19 | Day surgery (SDC) | payer BC, SELFPAY ==
[2023-08-26 13:10] VITALS: BMI 27.5
--- NOTE | 2023-08-28 11:01 | HO.ANESPROP2 ---
Documented by User: Gia Higgins NP 08/28/23 11:02 HPI - Anesthesia Eval Consult details Narrative: 58yo M for Colonoscopy PMFSH Active Problems Active Problems: All Active Problems COVID-19 virus infection (Acute) Blood pressure elevated without history of HTN (Acute) Multiple pigmented nevi (Acute) Skin tag (Acute) Constipation (Acute) Annual physical exam (Acute) Cutaneous abscess of abdominal wall (Acute) Abscess (Acute) Radicular low back pain (Acute) Low back pain (Acute) Sebaceous cyst (Acute) Annual physical exam (Acute) Mass of skin of back (Acute) Generalized anxiety disorder (Acute) Right lateral epicondylitis (Acute) Overweight (BMI 25.0-29.9) (Acute) Constipation (Acute) GERD (gastroesophageal reflux disease) (Acute) Impaired glucose tolerance (Acute) Hypercholesterolemia (Acute) Past Medical History Medical History (Updated 08/26/23 @ 13:08 by Kelsey Moran RN) Anxiety Lower thoracic back pain DDD (degenerative disc disease), thoracolumbar DVT (deep venous thrombosis) GERD (gastroesophageal reflux disease) Vitamin D deficiency Constipation Impaired glucose tolerance Hypercholesterolemia Family History Family History (Updated 07/10/23 @ 09:32 by José Miguel Castro MD) Father Esophageal cancer Maternal Grandfather Lung cancer Paternal Grandmother CVA (cerebral vascular accident) Mother Colon cancer, Onset Age: 80 Surgical History Surgical History (Updated 08/26/23 @ 13:08 by Kelsey Moran RN) Hx of abdominal surgery H/O colonoscopy H/O lumbosacral spine surgery Rupture of left Achilles tendon Social History Social History (Updated 08/26/23 @ 13:11 by Kelsey Moran RN) Housing: House Alcohol intake: current Alcohol intake frequency: holidays/special occasions only Comment: once a month 2 beers Patient Tobacco Use Status: Never used Tobacco e-Cigarette/Vaping Use: Never Used Second Hand Smoke Exposure: No Use of substances other than those prescribed or required for medical reasons: No Are you DNR?: No Advance Directives: No Advance Directives Information Provided: Yes Recently lost weight without trying: No Nutrition Risks: No Nutritional Risk service: No Current occupational status: employed Cognitive needs: No Hearing needs: No Vision needs: Yes Meds Allergies Allergy/AdvReac Type Severity Reaction Status Date / Time No Known Allergies Allergy Verified 07/10/23 09:04 Home Medications ?Medication ?Instructions ?Recorded ?Confirmed ?Last Taken ?Type No Known Home Meds 07/09/22 08/26/23 Unknown History Exam Height,Weight and Vital Signs: Height 5 ft 9 in Weight 84.595 kg Pertinent Lab Results Pertinent Lab Results: Laboratory Tests 07/07/23 07:50 WBC 5.7 Hgb 15.0 Hct 43.9 Plt Count 245 Sodium 138 Potassium 4.4 Chloride 104 Carbon Dioxide 24 BUN 19 H Creatinine 1.00 Assessment and Plan Assessment Anesthesia Assessment: Chart Reviewed Documented by User: Grayson Leon MD 08/29/23 10:15 PMFSH Past Medical History Medical History (Updated 08/26/23 @ 13:08 by Kelsey Moran RN) Anxiety Lower thoracic back pain DDD (degenerative disc disease), thoracolumbar DVT (deep venous thrombosis) GERD (gastroesophageal reflux disease) Vitamin D deficiency Constipation Impaired glucose tolerance Hypercholesterolemia Family History Family History (Updated 07/10/23 @ 09:32 by José Miguel Castro MD) Father Esophageal cancer Maternal Grandfather Lung cancer Paternal Grandmother CVA (cerebral vascular accident) Mother Colon cancer, Onset Age: 80 Family history of problems with anesthesia: No Surgical History Surgical History (Updated 08/26/23 @ 13:08 by Kelsey Moran RN) Hx of abdominal surgery H/O colonoscopy H/O lumbosacral spine surgery Rupture of left Achilles tendon History of Problems with Anesthesia: No Social History Social History (Updated 08/26/23 @ 13:11 by Kelsey Moran RN) Housing: House Alcohol intake: current Alcohol intake frequency: holidays/special occasions only Comment: once a month 2 beers Patient Tobacco Use Status: Never used Tobacco e-Cigarette/Vaping Use: Never Used Second Hand Smoke Exposure: No Use of substances other than those prescribed or required for medical reasons: No Are you DNR?: No Advance Directives: No Advance Directives Information Provided: Yes Recently lost weight without trying: No Nutrition Risks: No Nutritional Risk service: No Current occupational status: employed Cognitive needs: No Hearing needs: No Vision needs: Yes Meds Allergies Allergy/AdvReac Type Severity Reaction Status Date / Time No Known Allergies Allergy Verified 07/10/23 09:04 Home Medications ?Medication ?Instructions ?Recorded ?Confirmed ?Last Taken ?Type No Known Home Meds 07/09/22 08/26/23 Unknown History Exam Airway Mallampati Class: II TM Dist: >3cm Neck ROM: Full Loose/Missing/Broken Teeth: No Heart: rrr Lungs: cta Assessment and Plan Assessment Anesthesia Assessment: Anesthesia Plan Discussed Final Anesthetic Review Family History of Problems with Anesthesia: No History of Problems with Anesthesia: No ASA Class: II Final Preanesthetic Review: No Changes in Pt Med Stat, Meds/Allgs Chart Reviewed, Consent Obtained/Reviewed and Anes Risks/Benef Reviewed Patient Risk: Intermediate Procedure Risk: Intermediate Anesthetic Plan Anesthetic Plan: MAC: Disposition: Standard PACU
[2023-08-29 09:28] VITALS: BP 108/71; PULSE 55; RESP 20; TEMP 36.9; O2SAT 98; BMI 27.8
[2023-08-29] MEDS: Lactated Ringers 1,000 ML 100 ML IVCONT (09:44)
--- NOTE | 2023-08-29 11:02 | P.HPSUR_ITS ---
Pre-Procedural Eval Section A - 24 Hr Update-Section A only Date of Service: 08/29/23 Section B - Complete if H&P > 30 days Chief Complaint: Encounter for screening for malignant neoplasm of Details of Present Illness: see H*P no changes Relevant Family History (Specify if Yes): No Relevant Social History: None Present Medications: see Short Stay Collaborative assessment Medical History: No relevant PMH History of Previous Operations: No relevant previous surgery Allergies: Allergies Allergy/AdvReac Type Severity Reaction Status Date / Time No Known Allergies Allergy Verified 07/10/23 09:04 Review of Systems Sugical H&P ROS: Negative: Constitution, Cardiovascular, Respiratory, Neurological, Psychiatric, Hem-Onc, Allergic/Immunologic, Gastrointestinal, Genitourinary, Musculoskeletal, Integumentary, Endocrine and Eyes/Ears/No se/Throat Exam Surgical H&P Exam: Normal: HEENT, Normal: Heart, Normal: Lungs, Normal: Extremities, Normal: Abdomen, Normal: Skin and Normal: Neurological Plan Diagnosis/Plan: Unchanged I have reviewed the history and physical and performed a pertinent physical examination on my patient. No changes have occurred unless specified. Time Spent With Patient Time: Total time managing care of this patient today ____ minutes.
[2023-08-29 12:02] VITALS: BP 90/58; PULSE 56; RESP 15; TEMP 36.3; O2SAT 97
[2023-08-29 12:21] VITALS: BP 117/80; PULSE 69; RESP 18; TEMP 36.3; O2SAT 99
--- NOTE | 2023-08-29 12:25 | OP_ITS ---
DATE OF SERVICE: 08/29/2023 SURGEON: Massimo Armstrong MD INDICATIONS: Colon cancer screening. PREOPERATIVE DIAGNOSIS: POSTOPERATIVE DIAGNOSIS: PROCEDURE PERFORMED: Colonoscopy to the terminal ileum with biopsy. ESTIMATED BLOOD LOSS: COMPLICATIONS: ANESTHESIA: Monitored anesthesia care. ASSISTANTS: SPECIMENS: DESCRIPTION OF PROCEDURE: A history and physical was performed. The risks and benefits of the procedure were explained to the patient. Informed consent was obtained. The patient was placed in the left lateral decubitus position. A digital rectal exam was performed and was found to be normal. The Olympus pediatric video colonoscope was introduced into the rectum and advanced to the cecum. The cecum was identified by transillumination, palpation, and identification of ileocecal valve. Examination was performed. The scope was removed. He tolerated the procedure well and was returned to the recovery area in stable condition. Abdominal wall pressure was used to assist in advancement of the scope. FINDINGS: The terminal ileum was examined and appeared normal. The visualized colonic mucosa was normal. The quality of the prep was good. There was some liquid stool mainly in the transverse and descending colon that was washed and suctioned. Three polyps were removed with a biopsy forceps. These were located at 55 cm, in the cecum, and at 70 cm. All were less than 5 mm. Retroflexed examination showed small internal hemorrhoids. There was scattered diverticulosis throughout the transverse and descending and sigmoid colon. IMPRESSION: Colon polyps. RECOMMENDATION: Follow up the biopsy results. MD AYO Ventura/IVONL / [id number] MTDD
== END 2023-08-29 12:55 | disposition home or self-care (01) ==
PROVIDERS: PCP Internal Medicine; Visit Provider Internal Medicine Gastroenterology
PROC: 0DJD8ZZ Inspection of Lower Intestinal Tract, Via Natural or Artificial Opening Endoscopic (ICD-10-PCS; CPT 45378; principal; 2023-08-29 10:50)
DX: Z12.11 Encounter for screening for malignant neoplasm of colon (principal); Z80.0 Family history of malignant neoplasm of digestive organs; D12.0 Benign neoplasm of cecum; D12.4 Benign neoplasm of descending colon; K63.5 Polyp of colon; K57.30 Diverticulosis of large intestine without perforation or abscess without bleeding; K64.8 Other hemorrhoids; I10 Essential (primary) hypertension; E78.5 Hyperlipidemia, unspecified; F41.8 Other specified anxiety disorders; Z98.890 Other specified postprocedural states
CPT/HCPCS: 45380; 88305; J2704

== ENCOUNTER 2023-10-21 07:03 | Outpatient (REF) | payer BC, SELFPAY ==
[2023-10-21 08:54] LABS: Alanine Aminotransferase 19 U/L (0-40); Albumin Level 4.3 g/dL (3.5-5.0); Alkaline Phosphatase 59 U/L (39-117); Anion Gap 14 (12-20); Aspartate Amino Transferase 16 U/L (5-37); Bilirubin Total 0.5 mg/dL (0.0-1.0); Blood Urea Nitrogen 18 mg/dL (9-16); Calcium 9.6 mg/dL (8.4-10.2); Carbon Dioxide 26 mmol/L (22-29); Chloride 104 mmol/L (96-108); Cholesterol 238 mg/dL (<200); Estimated Glomerular Filt Rate > 60; Glucose Random 98 mg/dL (60-115); HDL Cholesterol 67 mg/dL (>40); LDL Cholesterol Calculated 141 mg/dL (<100); Potassium 4.4 mmol/L (3.3-5.1); Sodium 140 mmol/L (135-145); Total Protein 7.4 g/dL (6.5-8.0); Triglycerides 153 mg/dL (<150)
[2023-10-21 09:10] LABS: Estimated Average Glucose 108 mg/dL; Hemoglobin A1c % 5.4 % (<6.0)
== END 2023-10-21 07:04 | disposition home or self-care (01) ==
LOC: HO.LAB 07:03
PROVIDERS: PCP Internal Medicine; Visit Provider Internal Medicine
DX: E78.00 Pure hypercholesterolemia, unspecified (principal); Z13.1 Encounter for screening for diabetes mellitus
CPT/HCPCS: 36415; 80053; 80061; 83036

== ENCOUNTER 2023-10-22 08:22 | Outpatient (AMB) | payer BC, SELFPAY ==
--- NOTE | 2023-10-22 08:28 | A.OFFPC_ITS ---
Vital Signs 10/22/23 08:29 Height 5 ft 9 in Weight 187 lb BMI 27.6 BP 118/68 Blood Pressure Location Lt brachial Position Sitting Pulse 71 Pulse Source Pulse Oximeter Pulse Oximetry (%) 98 Oxygen Delivery Method Room Air Intake Visit Reasons: HTN, cholesterol Allergies No Known Allergies Allergy (Verified 10/22/23 08:29) Tobacco use date assessed: 07/10/23 Dental Screening Dental Screen Date: 07/10/23 HPI HTN, cholesterol HPI Details 58-year-old overweight male with a histo ry of hypercholesterolemia GERD generalized anxiety disorder last seen for physical exam in June noted to have an mild elevation in the blood pressure and was advised to follow-up on the blood pressure. Patient is here for follow-up. August colonoscopy done under Dr. Armstrong 3 polyps noted 2 of which were tubular adenoma negative high-grade dysplasia. ASCVD risk 5.4 % borderline lifetime of 46% colon 5 year [facility] Medical History (Updated 10/22/23 @ 08:35 by José Miguel Castro MD) Anxiety Lower thoracic back pain DDD (degenerative disc disease), thoracolumbar DVT (deep venous thrombosis) GERD (gastroesophageal reflux disease) Vitamin D deficiency Constipation Impaired glucose tolerance Hypercholesterolemia Surgical History (Updated 08/26/23 @ 13:08 by Kelsey Moran RN) Hx of abdominal surgery H/O colonoscopy H/O lumbosacral spine surgery Rupture of left Achilles tendon Family History (Updated 10/22/23 @ 08:30 by Eugenia Mane CMA) Father Esophageal cancer Maternal Grandfather Lung cancer Paternal Grandmother CVA (cerebral vascular accident) Mother Colon cancer, Onset Age: 80 Social History (Updated 08/26/23 @ 13:11 by Kelsey Moran RN) Housing: House Alcohol intake: current Alcohol intake frequency: holidays/special occasions only Comment: once a month 2 beers Patient Tobacco Use Status: Never used Tobacco e-Cigarette/Vaping Use: Never Used Second Hand Smoke Exposure: No service: No Current occupational status: employed Cognitive needs: No Hearing needs: No Vision needs: Yes Questionnaire PHQ-9 Over the last 2 weeks, how often have you been bothered by any of the following problems? 1. Little interest or pleasure in doing things: not at all 2. Feeling down, depressed, or hopeless: not at all 3. Trouble falling or staying asleep, or sleeping too much: not at all 4. Feeling tired or having little energy: not at all 5. Poor appetite or overeating: not at all 6. Feeling bad about yourself - or that you are a failure or have let yourself or your family down: not at all 7. Trouble concentrating on things, such as reading the newspaper or watching television: not at all 8. Moving or speaking so slowly that other people could have noticed. Or the opposite - being so fidgety or restless that you have been moving around a lot more than usual: not at all 9. Thoughts that you would be better off or of hurting yourself in some way: not at all Total score: 0 Depression Screening Interpretation: Negative Depression Screening Done: Yes Source: Developed by Drs. Francisco J Meyer, Sosa Rivera, Jakob Barrientos and colleagues, with an educational ramos from [employer]. Thrive Questionnaire Date Thrive assessed: 10/22/23 I am a: Patient What is your living situation today?: I have a steady place to live Within the past 12 months, did the food you bought not last and you didn't have the money to get more?: Never true Within the past 12 months, did you worry whether your food would run out before you got money to buy more?: Never true Do you have trouble paying for medicines?: No Do you have trouble getting transportation to medical appointments?: No Do you have trouble paying your heating and electricity bill?: No Do you have trouble taking care of your child, family member or friend?: No Do you have trouble with day-to-day activities such as bathing, preparing meals, shopping, managing finances, etc.?: No Are you currently unemployed and looking for a job?: No Are you interested in more education?: No Please select the resources that you would like help with: None Currently or been in a relationship where the following occur: no concerns reported THRIVE Score: 0 AUDIT C Alcohol Use Questionnaire (AUDIT-C) 1. How often do you have a drink containing alcohol?: Monthly or less 2. How many drinks containing alcohol do you have on a typical day when you are drinking?: 1 or 2 3. How often do you have six or more drinks on one occasion?: Never Total Score: 1 DARLENE-7 AMB Questionnaire DARLENE-7 Date DARLENE - 7 assessed: 07/10/23 Source: Developed by Drs. Francisco J Meyer, Sosa Rivera, Jakob Barrientos and colleagues, with an educational ramos from [employer]. Physical exam (Primary Care) Vital Signs: Oxygen Delivery Method Room Air 10/22/23 08:29 BMI result Body Mass Index 27.6 Tobacco/Smoking Status: Tobacco use Status Tobacco use date assessed 07/10/23 07/10/23 09:06 Patient Tobacco Use Status Never used Tobacco 08/29/23 11:01 e-Cigarette/Vaping Use Never Used 07/10/23 09:40 Depression Screening Interpretation: Negative Thrive Assessment: Date of Thrive Assessment Date Thrive assessed 07/05/22 07/10/23 09:06 Currently or been in a relationship where the following occur: no concerns reported Const General: alert; No acute distress Eyes Conjunctivae: conjunctivae normal Resp Auscultation: clear to auscultation bilaterally Cardio Rate: regular rate Rhythm: regular rhythm GI Inspection: Yes normal to inspection Extrem General: Yes normal to inspection and No edema Assessment and Plan Assessment & Plan (1) Overweight (BMI 25.0-29.9): Code(s): E66.3 - Overweight Plan: Diet and exercise (2) Hypercholesterolemia: Comment: diet control, Code(s): E78.00 - Pure hypercholesterolemia, unspecified Plan: Avoid fried foods, chicken skin, eggs, butter margarine, pastries and meat. Be it pork or beef they have a lot of cholesterol, ASCVD risk 5.4% borderline with lifetime risk of 46%. (3) Impaired glucose tolerance: Code(s): R73.02 - Impaired glucose tolerance (oral) Plan: Decrease the amount of carbohydrate intake, pasta, bread, rice and potatoes are all sugar and that is aside from all the sweet stuff, remember that fruits are good but they are Sweet also. Hemoglobin A1c is in the normal range (4) GERD (gastroesophageal reflux disease): Code(s): K21.9 - Gastro-esophageal reflux disease without esophagitis Plan: Avoid the foods that causes that usually spicy foods, tomato products, juices, coffee, soda and foods that your sensitive to. After eating do not lie down, allow 3-4 hours before in lie down. And keep the head of bed above 30 degrees to avoid the acid from going up. (5) Generalized anxiety disorder: Code(s): F41.1 - Generalized anxiety disorder Plan: Stable (6) Blood pressure elevated without history of HTN: Code(s): R03.0 - Elevated blood-pressure reading, without diagnosis of hypertension Plan: Blood pressure monitoring has been good (7) Tubular adenoma of colon: Comment: 08/2023 Code(s): D12.6 - Benign neoplasm of colon, unspecified Plan: 5 year retest Orders: Orders Complete Blood Count Auto Diff 6 Months E78.00 - Pure hypercholesterolemia, unspecified Comprehensive Met. Panel 6 Months E78.00 - Pure hypercholesterolemia, unspecified Thyroid Stimulating Hormone 6 Months E78.00 - Pure hypercholesterolemia, unspecified Vitamin B12 and Folate 6 Months E78.00 - Pure hypercholesterolemia, unspecified Free T4 (Free Thyroxine) 6 Months E78.00 - Pure hypercholesterolemia, unspecified Lipid Panel 6 Months E78.00 - Pure hypercholesterolemia, unspecified Prostate Specific Antigen Scr 6 Months E78.00 - Pure hypercholesterolemia, unspecified Coding Level of Care Code Est Pt Level 4 (54155) Diagnoses Overweight (BMI 25.0-29.9) E66.3 Hypercholesterolemia E78.00 Impaired glucose tolerance R73.02 GERD (gastroesophageal reflux disease) K21.9 Generalized anxiety disorder F41.1 Blood pressure elevated without history of HTN R03.0 Tubular adenoma of colon D12.6
[2023-10-22 08:29] VITALS: BP 118/68; PULSE 71; O2SAT 98; BMI 27.6
== END 2023-10-22 08:42 | disposition home or self-care (01) ==
PROVIDERS: PCP Internal Medicine; Visit Provider Internal Medicine
DX: E66.3 Overweight (principal); E78.00 Pure hypercholesterolemia, unspecified; R73.02 Impaired glucose tolerance (oral); K21.9 Gastro-esophageal reflux disease without esophagitis; F41.1 Generalized anxiety disorder; R03.0 Elevated blood-pressure reading, without diagnosis of hypertension; D12.6 Benign neoplasm of colon, unspecified
CPT/HCPCS: 99214

== ENCOUNTER 2024-08-27 12:28 | Outpatient (AMB) | payer BC, SELFPAY ==
--- NOTE | 2024-08-27 12:34 | MHC.PC.OV ---
Vital Signs 08/27/24 12:35 Height 5 ft 9 in Weight 197 lb BMI 29.1 BP 128/70 Blood Pressure Location Lt brachial Position Sitting Pulse 65 Pulse Source Pulse Oximeter Pulse Oximetry (%) 97 Oxygen Delivery Method Room Air Intake Visit Reasons: Annual Exam Allergies No Known Allergies Allergy (Verified 08/27/24 12:35) Medication List - Last Reconciled 08/27/24 by José Miguel Castro MD ibuprofen 800 mg PO TID Tobacco use date assessed: 08/27/24 Dental Screening Dental Screen Date: 08/27/24 Did you have a dental visit in the last 12 months?: Yes Did you have a dental problem in the last 6 months where you did not have access to dental care?: No Was dental information given to patient?: Patient has dentist [facility] Medical History (Updated 08/27/24 @ 12:43 by José Miguel Castro MD) Tubular adenoma of colon Anxiety Lower thoracic back pain DDD (degenerative disc disease), thoracolumbar DVT (deep venous thrombosis) GERD (gastroesophageal reflux disease) Vitamin D deficiency Constipation Impaired glucose tolerance Hypercholesterolemia Surgical History (Updated 08/26/23 @ 13:08 by Kelsey Moran RN) Hx of abdominal surgery H/O colonoscopy H/O lumbosacral spine surgery Rupture of left Achilles tendon Family History (Updated 10/22/23 @ 08:30 by Eugenia Mane CMA) Father Esophageal cancer Maternal Grandfather Lung cancer Paternal Grandmother CVA (cerebral vascular accident) Mother Colon cancer, Onset Age: 80 Social History (Updated 08/27/24 @ 12:47 by José Miguel Castro MD) Housing: House Alcohol intake: current Alcohol intake frequency: holidays/special occasions only Comment: once a month 2 beers, once a week 2 beers Patient Tobacco Use Status: Never used Tobacco Tobacco use type: Cigarette e-Cigarette/Vaping Use: Never Used Second Hand Smoke Exposure: No service: No Current occupational status: employed Cognitive needs: No Hearing needs: No Vision needs: Yes Questionnaire PHQ-9 Over the last 2 weeks, how often have you been bothered by any of the following problems? 1. Little interest or pleasure in doing things: not at all 2. Feeling down, depressed, or hopeless: not at all 3. Trouble falling or staying asleep, or sleeping too much: not at all 4. Feeling tired or having little energy: not at all 5. Poor appetite or overeating: not at all 6. Feeling bad about yourself - or that you are a failure or have let yourself or your family down: not at all 7. Trouble concentrating on things, such as reading the newspaper or watching television: not at all 8. Moving or speaking so slowly that other people could have noticed. Or the opposite - being so fidgety or restless that you have been moving around a lot more than usual: not at all 9. Thoughts that you would be better off or of hurting yourself in some way: not at all Total score: 0 Depression Screening Interpretation: Negative Depression Screening Done: Yes 68831 - PHQ-9 Billing: Yes Source: Developed by Drs. Francisco J Meyer, Sosa Rivera, Jakob Barrientos and colleagues, with an educational ramos from [employer]. Thrive Questionnaire Date Thrive assessed: 08/20/24 I am a: Patient What is your living situation today?: I have a steady place to live Within the past 12 months, did the food you bought not last and you didn't have the money to get more?: Never true Within the past 12 months, did you worry whether your food would run out before you got money to buy more?: Never true Do you have trouble paying for medicines?: No Do you have trouble getting transportation to medical appointments?: No Do you have trouble paying your heating and electricity bill?: No Do you have trouble taking care of your child, family member or friend?: No Do you have trouble with day-to-day activities such as bathing, preparing meals, shopping, managing finances, etc.?: No Are you currently unemployed and looking for a job?: No Are you interested in more education?: No Please select the resources that you would like help with: None Currently or been in a relationship where the following occur: No concerns reported THRIVE Score: 0 AUDIT C Alcohol Use Questionnaire (AUDIT-C) 1. How often do you have a drink containing alcohol?: 2-4 times a month 2. How many drinks containing alcohol do you have on a typical day when you are drinking?: 1 or 2 3. How often do you have six or more drinks on one occasion?: Never Total Score: 2 DARLENE-7 AMB Questionnaire DARLENE-7 Date DARLENE - 7 assessed: 08/27/24 Feeling nervous, anxious, or on edge: 0 = Not at all Not being able to stop or control worryin = Not at all Worrying too much about different things: 0 = Not at all Trouble relaxin = Not at all Being so restless that it is hard to sit still: 0 = Not at all Becoming easily annoyed or irritable: 0 = Not at all Feeling afraid as if something awful might happen: 0 = Not at all Total DARLENE-7 score (0-4 normal; 5-9 mild; 10-14 moderate; 15-21 severe): 0 Source: Developed by Drs. Francisco J Meyer, Sosa Rivera, Jakob Barrientos and colleagues, with an educational ramos from [employer]. DARLENE-7 Assessment Billing DARLENE-7 Assessment Tool: DARLENE-7 Assessment 02906 Review of Systems Const Denies poor appetite and Denies weakness Eyes Denies no additional complaints ENT Reports Normal hearing present, Denies dizziness, Denies nasal congestion, Denies tinnitus and Denies sore throat Card Denies chest pain, Denies syncope, Denies rapid heart rate and Denies dyspnea Resp Denies cough and Denies dyspnea GI Denies change in stool character, Reports constipation, Denies diarrhea, Denies nausea and Denies vomiting Denies dysuria and Denies urinary frequency Neuro Reports Normal hearing present, Denies confusion, Denies dizziness, Denies syncope and Denies weakness Psych Denies confusion Physical exam (Primary Care) Vital Signs: Last Vital Signs Pulse 65 08/27/24 12:35 BP 128/70 08/27/24 12:35 Pulse Ox 97 08/27/24 12:35 Oxygen Delivery Method Room Air 08/27/24 12:35 BMI result Body Mass Index 29.1 Tobacco/Smoking Status: Tobacco use Status Tobacco use date assessed 08/27/24 08/27/24 12:38 Patient Tobacco Use Status Never used Tobacco 08/27/24 12:38 Tobacco use type Cigarette 08/27/24 12:38 e-Cigarette/Vaping Use Never Used 08/27/24 12:38 PHQ-9: PHQ-9 Score PHQ-9: Total score 0 08/27/24 12:38 Depression Screening Interpretation: Negative Thrive Assessment: Date of Thrive Assessment Date Thrive assessed 08/20/24 08/27/24 12:38 Currently or been in a relationship where the following occur: No concerns reported Const General: No confusion Orientation/consciousness: No confusion HENMT Head: Yes normocephalic Ears: external ears normal and TM's normal bilaterally Face and sinus: Yes normal facial exam Mouth: moist mucous membranes Throat: Yes tonsils normal Eyes Conjunctivae: conjunctivae normal Pupils: Equal, round and reactive pupils present and Pupil accommodation reflex normal Direct Ophthalmoscopy: normal light reflex Neck Neck: No lymphadenopathy Thyroid: Thyroid normal Chest Chest palpation & inspection: normal inspection of the chest Resp Effort & Inspection: normal respiratory effort and no audible wheezes Auscultation: clear to auscultation bilaterally, no crackles, no wheezes and lung sounds not diminished Cardio Rate: regular rate Rhythm: regular rhythm Peripheral pulses: radial pulses present and dorsalis pedis present GI Other: Had a recent colonoscopy Palpation (GI): no masses Auscultation: normal bowel sounds and normoactive bowel sounds Rectal Exam - Male: Yes deferred Other: Declined Back/Spine/Pelvis Back/spine/pelvis image: 1. No redness no swelling tender on palpation as well as on twisting on the right paravertebral thoracic area Skin General skin exam: no rashes or lesions noted Rashes: no rashes Neuro General: No confusion Cranial nerves: Yes Equal, round and reactive pupils present and Yes Normal hearing present Cognition (Neuro): normal cognition Gait exam (Neuro): Normal gait present Motor exam (neuro): 5/5 motor strength present throughout Deep tendon reflexes (DTR's): Right brachioradialis reflex intensity grade: 2+, Left brachioradialis reflex intensity grade: 2+, Right patellar reflex intensity grade: 2+ and Left patellar reflex intensity grade: 2+ Extrem General: No edema Coding Level of Care Code Est Pt Prev Care 40-64y(49379) Diagnoses Annual physical exam Z00.00 Overweight (BMI 25.0-29.9) E66.3 Impaired glucose tolerance R73.02 Hypercholesterolemia E78.00 Thoracic back pain M54.6 Additional Codes DARLENE-7 Assessment Billing - DARLENE-7 Assessment Tool: DARLENE-7 Assessment 44893 ([id number]) PHQ-9 - 85032 - PHQ-9 Billing: Yes ([id number]) Assessment & Plan Assessment & Plan (1) Annual physical exam: Code(s): Z00.00 - Encounter for general adult medical examination without abnormal findings Category: Medical Plan: Patient is advised to eat healthy, keep well hydrated, keep active and have adequate sleep. (2) Overweight (BMI 25.0-29.9): Code(s): E66.3 - Overweight Category: Medical Plan: Diet and exercise (3) Impaired glucose tolerance: Code(s): R73.02 - Impaired glucose tolerance (oral) Category: Medical Plan: Decrease the amount of carbohydrate intake, pasta, bread, rice and potatoes are all sugar and that is aside from all the sweet stuff, remember that fruits are good but they are Sweet also. (4) Hypercholesterolemia: Comment: diet control, Code(s): E78.00 - Pure hypercholesterolemia, unspecified Category: Medical Plan: Avoid fried foods, chicken skin, eggs, butter margarine, pastries and meat. Be it pork or beef they have a lot of cholesterol LDL goal of less than 130 and triglyceride of less than 150 (5) Thoracic back pain: Code(s): M54.6 - Pain in thoracic spine Category: Medical Plan: Patient declined physical therapy for now. Discussed why MRI is not going to be covered and has to go through conservative management to start. Discussed about heat. Plan History of Present Illness The patient is a 59-year-old male presenting with back pain, potentially related to previous arthritis noted between the T11-T12 vertebrae, exacerbated by twisting movements. The pain commenced two weeks ago following a jarring experience while riding in a golf cart. He treats the pain with ibuprofen, taken consistently with food, yet reports concern about prolonged NSAID use. No additional symptoms such as numbness or significant trauma history are associated with this episode. Health Maintenance - Most recent colonoscopy done in October 2022 with polyp findings; the patient reported no blood in stool subsequently. - Blood work in June 2023 showed normal electrolyte and renal function, but elevated cholesterol levels. - Last normal blood count revealed no anemia. - Patient?s LDL cholesterol goal is set at less than 130 mg/dL, and triglyceride target is below 150 mg/dL. - Blood sugar maintenance discussed, as impaired glucose tolerance is noted. - Current vaccinations are up to date, including tetanus. - No need for an influenza vaccine currently as the flu season is ending. Social History - He exercises by playing tennis indoors and walking regularly. - Alcohol consumption includes a couple of beers approximately once a week. - Denies smoking and recreational drug use. - Experiences occasional constipation, managed with green juice. - Drinks approximately four to five 8-ounce glasses of water per day but plans to increase to six to eight. - Weight self-reported as increased by approximately 10 pounds recently. Review of Systems - Constitutional: Denies fever, chills, or weight loss aside from reported gain. - ENT: Denies problems; requested ear examination for wax buildup. - Cardiovascular: Denies chest pain, palpitations, or shortness of breath. - Gastrointestinal: Denies nausea, vomiting, and swallowing difficulties; reports occasional constipation. - Musculoskeletal: Reports back pain exacerbated by twisting movements. - Neurological: Denies dizziness, syncope, or changes in hearing. - Respiratory: Denies cough or breathing difficulties. Physical Exam General: Cooperative, healthy appearing, comfortable, no acute distress and well developed Orientation: Patient oriented x3 Limitations: No limitations Head: Normal to inspection Ears: Hearing grossly normal bilaterally, a little ear wax noted but not obstructive Nose: Normal external nose present Face and sinus: Normal facial exam Eyes: Appearance normal, both eyes and all related structures Neck: Normal visual inspection and Yes full ROM Respiratory: Normal respiratory effort and able to speak in complete sentences. Clear to auscultation bilaterally Cardiovascular: Regular rate and rhythm. Normal S1 and S2 GI: Normal to inspection. Soft to palpation and nontender Skin: No rashes or lesions noted Neuro: Patient oriented x3 Extremities: Normal to inspection, no pain noted except when twisting, indicating muscle discomfort on the right side of the back Results - Labs: June 2023 labs showing elevated cholesterol levels. - Tests: MRI previous for arthritis T11-T12. Plan Dietary modifications and lifestyle changes were recommended to lower the patient's LDL cholesterol and triglycerides. An x-ray is advised to evaluate any changes in his spine, especially concerning potential facet joint arthritis. As NSAID use may affect kidney function, recommendations include careful usage with associated risks explained. Conservative pain relief using heat and massage was discussed, while muscle relaxants were avoided due to possible grogginess. Upcoming labs require fasting, and health maintenance focuses on hydration and exercise. Patient was informed and verbally consented to the use of an ambient scribe for clinic note documentation during this visit. Discussion Notes I reviewed the consequences of chronic NSAID use on renal function and emphasized the importance of adherence to dietary and lifestyle changes to improve his cholesterol levels. The risks and potential benefits of imaging to evaluate changes due to arthritis were discussed, with an x-ray arranged at the same visit as the upcoming blood work. Conservative management for back pain was discussed, and while muscle relaxants were considered, they were not recommended due to their side effects. We concluded that an MRI request for insurances is contingent on conservative management trial, hence the emphasis on physical therapy. The patient was scheduled for annual follow-up unless symptoms demanded earlier reassessment, emphasizing his active role in managing hydration and exercise to support hernia healing and weight management. Patient Instructions - Schedule an x-ray of your spine to be done concurrently with your blood work. - Maintain a fasting state before your blood work appointment. - Use heat therapy and your Shiatsu massage device as needed for back pain. - Be mindful of your ibuprofen use to prevent potential kidney issues. - Focus on a diet that aids in reducing your cholesterol and triglycerides. - Increase water intake to at least six to eight glasses per day. - Continue engaging in regular physical activity such as walking and tennis. - Return to the office if you experience worsening symptoms or if you have any new concerns. Orders: Orders XR thoracic spine 2V Today M54.6 - Pain in thoracic spine Hemoglobin A1c Today R73.02 - Impaired glucose tolerance (oral)
[2024-08-27 12:35] VITALS: BP 128/70; PULSE 65; O2SAT 97; BMI 29.1
--- OUTSIDE RECORDS SUMMARY | 2024-08-27 13:08 | XMS_ITS | Patient Health Record ---
Author Organization [facility] Address [address] [place] [address] Care Team Providers Care Hospital Personnel Director Name Role Phone José Miguel Castro MD Primary Care Provider Massimo Franks Jr Allergies No Known Allergies Results Component Value Reference Range Notes Pathology Reviewed date:09/11/2023 09:38:53 AM Interpretation: Performing Lab:[facility], [address] [place] [id number] Notes/Report: Name: Almas Valadez Age/Sex: 58/M : 1965 Unit#: [id number] Attend Dr: Massimo Armstrong MD Re08/29/23 Status : [facility] Location: [facility] Disch: SPEC : [id number] RECD : 08/29/23-1226 STATUS: AMIE MACKENZIE NUM: [id number] KEL: 08/29/23-112[address] [facility] [address]: Massimo Armstrong MD ENTERED: 08/29/23 32 SP TYPE: Surgical OTHR DR: José Miguel Castro MD ORDERED: HE Stain/9, Gross Micro L4/3 Addendum Addendum 1 Entered: 09/04/23 (A): Additional tiss ue levels show rare adenomatous crypts consistent with tubular adenoma; negative for high-gr laura dysplasia and carcinoma. Addendum Signed ____ __(signature on file) Keyla Matthias 09/04/23855 Diagnosis A. Colon, at 55 cm, polyp: Colonic mucosa with minor crypt distortion on initial levels (see comment). B. Colon, cecal poly p: Tubular adenoma, likely excised; negative for high-grade dysplasia and carcinoma. C. Colon, at 70 cm, polyp: Tubular adenoma, likely excised; negative for high-grade dysplasia and carcinoma. Comment: (A): Additional deep er tissue levels pending; addendum to follow. Clinical History Pre-Op Dx: Screening Post-Op Dx: Colon polyps Microscopic Description Microscopic sections reviewed. Material Received A. Polyp at 55 B. Polyp cecum C. Polyp at 70 CONTINUED ON NEXT PAGE Name: Almas Valadez Age/Sex: 58/M : 1965 Unit#: [id number] Attend Dr: Massimo Armstrong MD Re08/29/23 Status : [facility] Location: [facility] Disch: SPEC : [id number] RECD : 08/29/23 STATUS: [facility] NUM: [id number] KEL: 08/29/[address] [facility] [address]: Massimo Armstrong MD ENTERED: 08/29/23- 32 SP TYPE: Surgical OTHR DR: José Miguel Castro MD ORDERED: HE Stain/9, Gross Micro L4/3 Gross Description Received in 3 parts. A. Received in forma sanjana labeled ?polyp at 55? are 3 fragments of gallegos-white soft tissue ranging from 0 point 3-0.4 cm in greatest dimension which are wrapped in lens paper and entirely submitted f or microscopic examination, 3 pieces in cassette A. B. Received in forma sanjana labeled ?polyp cecum? is a fragment of gallegos-white soft tissue measuring 0.3 cm in greatest dimension which is wrapped in lens paper and entirely submitted for microscopic exam ination, 1 piece in cassette B. C. Received in forma sanjana labeled ?polyp at 70? is a fragment of gallegos-white soft tissue measuring 0.4 cm in greatest dimension which is wrapped in lens paper and entirely submitted for microscopic exam ination, 1 piece in cassette C. [facility] Copies To: Massimo Armstrong MD [address] [place] [address] [address] [place] [address] José Miguel Castro MD [address] [place] [id number] Signed (si gnature on file) Keyla Matthias 09/02/23 1635 END OF REPORT Reason For Referral No Information Immunizations Vaccine Route Administration Date Status Comme nts Influenza Unknown 03/26/2018 Refused Influenza Unknown 07/21/2023 Refused Problems Problem Type SNOMED Code ICD Code Onset Dates Problem Status W/U Status Risk Notes Problem 622499059 Colon cancer screening (Z12.11) Active confirmed Problem 314243580 Encounter for other preprocedural examination (Z01.818) Active confirmed Problem 561271363 Irritable bowel syndrome with diarrhea (K58.0) Active confirmed Problem 18292131 Constipation, unspecified constipation type (K59.00) Active confirmed Problem 598617006 FH: colon cancer (Z80.0) Active confirmed Encounters Encounter Location Date Provider Diagnosis [facility] Outpatient [address] [place], [place] [id number] 08/29/2023 Massimo Armstrong Jr Encounter for screening colonoscopy Z12.11 ; Colon polyps K63.5 and Other hemorrhoids K64.8 [facility] [address] [place] [address] 09/11/2023 Massimo Armstrong Jr Assessments Encounter Date Diagnosis (ICD Code) Assessment Notes Treatment Notes Treatment Clinical Notes Section Notes 08/29/2023 Encounter for screening colonoscopy (ICD-10 - Z12.11) 08/29/2023 Colon polyps (ICD-10 - K63.5) 08/29/2023 Other hemorrhoids (ICD-10 - K64.8) Plan Of Treatment Future Test Test Name Order Date COLONOSCOPY 05/01/2016 COLONOSCOPY 07/21/2023 Insurance Providers Payer Name Payer Address Payer Phone Subscriber Number Group Number Insured Name Patient Relationship to Insured Coverage Start Date Coverage End Date [facility] [address] [place] [address] [id number] MANE CRUZ Self - patient is the insured Medical (General) History Medical History History ICD Code Hyperlipidemia, diet controlled Depression/anxiety Low back pain Abdominal wall abscess Elevated blood pressure Colonoscopy, 07/05, normal, ten-year foll owup Surgical History Surgery Date(Month/Year) achilles tendon repair 2013 back surgery 2022 Abdominal wall abscess
--- OUTSIDE RECORDS SUMMARY | 2024-08-27 13:09 | XMS_ITS ---
Author Organization [facility] Address [address] [place] [address] Care Team Providers Care Real Estate Appraiser Supervisor Name Role Phone José Miguel Castro MD Primary Care Provider Massimo Franks Jr Allergies No Known Allergies REASON FOR VISIT Patient presents today for a discuss colonoscopy Immunizations Vaccine Route Administration Date Status Comme nts Influenza Unknown 07/21/2023 Refused Problems Problem Type SNOMED Code ICD Code Onset Dates Problem Status W/U Status Risk Notes Problem 437372606 FH: colon cancer (Z80.0) Active confirmed Problem 179921215 Encounter for other preprocedural examination (Z01.818) Active confirmed Vital Signs Temperature 98.0 degrees Fahrenheit 07/21/19 24 Blood pressure systolic 000 mm Hg 07/21/19 24 Blood pressure diastolic 00 mm Hg 024 Height 69 in 07/21/2023 Weight 186 lb 8 oz lbs 07/21/2023 BMI 27.54 kg/m2 07/21/2023 Encounters Encounter Location Date Provider Diagnosis [facility] [address] [facility] [place] [address] 07/21/2023 Massimo Armstrong Jr Colon cancer screening Z12.11 ; Encounter for other preprocedural examination Z01.818 and FH: colon cancer Z80.0 Assessments Encounter Date Diagnosis (ICD Code) Assessment Notes Treatment Notes Treatment Clinical Notes Section Notes 07/21/2023 Colon cancer screening (ICD-10 - Z12.11) Colonoscopy material was printed We discussed colonoscopy today. We discussed risks and benefits of the procedure today. He understands these and agrees to proceed. This will be scheduled at his convenience. 07/21/2023 Encounter for other preprocedural examination (ICD-10 - Z01.818) We discussed colonoscopy today. We discussed risks and benefits of the procedure today. He understands these and agrees to proceed. This will be scheduled at his convenience. 07/21/2023 FH: colon cancer (ICD-10 - Z80.0) We discussed colonoscopy today. We discussed risks and benefits of the procedure today. He understands these and agrees to proceed. This will be scheduled at his convenience. Plan Of Treatment Treatment Notes Assessment Notes Colon cancer screening Colonoscopy mater ial was printed Future Test Test Name Order Date COLONOSCOPY 07/21/2023 Next Appt Details Follow Up: 1 Year, Reason: Progress Notes * MANE VALADEZ RDOB:0 1965 (58 yo M)Acc No.[id number]:07/21/2023 Progress Notes Patient:?EMILEE VALADEZ R Provider:?Massimo Armstrong MD :1965???Age:58 Y???Sex:Male Alexey e:07/21/2023 [facility] Pcp:José Miguel Castro MD Subjective: * Chief Complaints: * ???1. Patient presents today for a discuss colonoscopy. * HPI: ???New symptom(s):? 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 He has a family history of colon cancer, with his mother being diagnosed at age 80. She required surgical resection but did not require chemoradiation. ?He underwent colonoscopy in 2017 which was normal. He has no complaints of rectal bleeding or change in his bowel habits. Weight and appetite have been stable. * ROS:?General/Constitutional:?Change in appetite?denies.?Fatigue?denies.?ENT:?Patient denies?difficulty swallowing.?Respiratory:?Patient denies?shortness of breath.?Cardiovascular:?Patient denies?chest pain.?Gastrointestinal:?Comments?See HPI for details.?Genitourinary:?Difficulty urinating?denies.?Incontinence?denies.?Musculoskeletal:?Patient denies?muscle aches.?Skin:?Patient denies?pruritis.?Neurologic:?Patient denies?low back pain.?Psychiatric:?Patient denies?mental or physical abuse.? * Medical History:?Hyperlipide toshia, diet controlled, Depression/anxiety, Low back pain, Abdominal wall abscess, Elevated blood pressure, Colonoscopy, 07/05, normal, ten- year followup. * Surgical History:?achilles t endon repair 2013, back surgery 2022, Abdominal wall abscess . * Family History:?Father: dece ased, ORAL CANCER.?Mother: alive, diagnosed with Colon cancer.? No family history of liver cancer. His mother was diagnosed with colon cancer in 2022. A cousin has stage IV colon cancer. * Social History:?Tobacco Use:?Tobacco Use/Smoking?Patient is a: nonsmoker.?Drugs/Alcohol:?Alcohol Screen?Points: 1, Interpretation: Negative.?Miscellaneous:?Marital status: . 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 * Medications:?Discontinued As pir-81 81 MG Tablet Delayed Release 1 tablet Orally Once a day, Discontinued Simvastatin 5 MG Tablet 1 tablet in the evening Orally Once a day, Discontinued Probiotic , Medication List reviewed and reconciled with the patient * Allergies:?N.K.D.A. Objective: * Vitals:?Wt: 186 lb 8 oz, Ht: 69 in, BMI:27.54 Index, BP: 000/00 mm Hg, Temp: 98.0. * Examination: ???General Examination: ?GENERAL APPEARANCE:?in no acute distress.?HEAD:?normocephalic.?EYES:?sclera non-icteric.?ORAL CAVITY:?mucosa moist.?NECK/THYROID:?no lymphadenopathy.?SKIN:?anicteric.?HEART:?S1, S2 normal, no murmurs.?LUNGS:?clear to auscultation bilaterally.?CHEST:?normal shape and expansion.?ABDOMEN:?soft, nontender, nondistended, bowel sounds present, no organomegaly .?EXTREMITIES:?no clubbing, cyanosis, or edema.?PSYCH:?cognitive function intact.? Assessment: * Assessment: 1.?Encounter for other prepr ocedural examination - Z01.818 (Primary)?2.?Colon cancer screening - Z12.11?3.?FH: colon cancer - Z80.0? We discussed colonoscopy tod ay. We discussed risks and benefits of the procedure today. He understands these and agrees to proceed. This will be scheduled at his convenience. Plan: * Treatment: Notes: Colonoscopy material was printed??2.?FH: colon cancer?Procedure: COLONOSCOPY (Ordered for 07/21/2023)* sched for 08/29/23 at 11:00 a mmacmiralax * Immunizations:? Influenza (Not administered - Refused: Patient decision) * Procedure Codes:?3017F COLOR ECTAL CA SCREEN DOC REV, G9903 Pt scrn tbco id as non user, G9744 PATIENT NOT ELIG D/T ACTIVE DX HTN * Preventive Medicine:? ??Counseling:?Care goal follow-up plan:?Above Normal BMI Follow-up?Giving encouragement to exercise,?BMI management provided?Yes.? 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 He has a family history of colon cancer, with his mother being diagnosed at age 80. She required surgical resection but did not require chemoradiation. He underwent colonoscopy in 2017 which was normal. He has no complaints of rectal bleeding or change in his bowel habits. Weight and appetite have been stable. Examination Category Sub-Category Detail Notes Category Not es General Examination GENERAL APPEARANCE: in no acute di stress HEAD: normocephalic EYES: sclera non-icteric NECK/THYROID: no lymphadenopathy HEART: S1, S2 normal, no mu rmurs CHEST: normal shape and exp ansion LUNGS: clear to auscultatio n bilaterally ABDOMEN: soft, nontender, non distended, bowel sounds present, no organomegaly SKIN: anicteric EXTREMITIES: no clubbing, cyanosi s, or edema PSYCH: cognitive function i ntact ORAL CAVITY: mucosa moist
--- OUTSIDE RECORDS SUMMARY | 2024-08-27 13:09 | XMS_ITS ---
Author Organization [facility] Address [address] [facility] [place] [address] Care Team Providers Care Automated Teller Manager Name Role Phone José Miguel Castro MD Primary Care Provider Massimo Franks Jr [phone] REASON FOR VISIT pathology Encounters Encounter Location Date Provider Diagnosis [facility] [address] [facility] [address] [place] [address] [place] [address] 09/11/2023 Massimo Armstrong Jr Plan Of Treatment No Information Progress Notes * MANE VALADEZ RDOB:0 1965 (58 yo M)Acc No.[id number]:09/11/2023 Patient:?EMILEE VALADEZ :1965???Age:58 Y???Sex:Male Address:[address], [place], [address] * true * Date:? Generated for Printi ng/Faxing/eTransmitting on:?08/27/2024 01:08 PM EDT
--- OUTSIDE RECORDS SUMMARY | 2024-08-27 13:09 | XMS_ITS ---
Author Organization [facility] Address [address] [place] [address] Care Team Providers Care Feeder Switchboard Operator Name Role Phone José Miguel Castro MD Primary Care Provider Massimo Franks Jr REASON FOR VISIT screening,fam hx colon cancer Encounters Encounter Location Date Provider Diagnosis [facility] Outpatient [address] [place] [phone] 08/29/2023 Massimo Armstrong Jr Encounter for screening colonoscopy Z12.11 ; Colon polyps K63.5 and Other hemorrhoids K64.8 Assessments Encounter Date Diagnosis (ICD Code) Assessment Notes Treatment Notes Treatment Clinical Notes Section Notes 08/29/2023 Encounter for screening colonoscopy (ICD-10 - Z12.11) 08/29/2023 Colon polyps (ICD-10 - K63.5) 08/29/2023 Other hemorrhoids (ICD-10 - K64.8) Plan Of Treatment No Information Progress Notes * MANE VALADEZ RDOB:0 1965 (59 yo M)Acc No.[id number]:08/29/2023 COLON WITH MAC Patient:?EMILEE VALADEZ Provider:?Massimo Armstrong MD :1965???Age:58 Y???Sex:Male Alexey e:08/29/2023 Address: [address], [place], [place] Pcp:José Miguel Castro MD Subjective: * Chief Complaints: * ???1. Screening,fam hx colon cancer. * Medical History:? Objective: * Vitals:? Assessment: * Assessment: 1.?Encounter for screening c olonoscopy - Z12.11 (Primary)???2.?Colon polyps - K63.5???3.?Other hemorrhoids - K64.8??? Plan: * Treatment: * Procedure Codes:?46037 COLON OSCOPY AND BIOPSY, Modifiers: PT * * The named appointment provid er may or may not be the originator of this progress note, and it is not deemed complete until electronically signed by the appointment provider. Sign off status: Pending * Provider:?Massimo Armstrong MD Date:?0 08/29/2023 Generated for Luis Carlos huff/Ninoska/eTclaudinesmitting on:?08/27/2024 01:08 PM EDT
== END 2024-08-27 13:01 | disposition home or self-care (01) ==
LOC: HO.HMCH 12:28
PROVIDERS: PCP Internal Medicine; Visit Provider Internal Medicine
DX: Z00.00 Encounter for general adult medical examination without abnormal findings (principal); E66.3 Overweight; R73.02 Impaired glucose tolerance (oral); E78.00 Pure hypercholesterolemia, unspecified; M54.6 Pain in thoracic spine

== ENCOUNTER → 2024-08-27 12:28 | Outpatient (BNVA) | payer BC, SELFPAY | PROVIDERS: PCP Internal Medicine; Visit Provider Internal Medicine | DX: Z00.00 Encounter for general adult medical examination without abnormal findings (principal); E66.3 Overweight; R73.02 Impaired glucose tolerance (oral); E78.00 Pure hypercholesterolemia, unspecified; M54.6 Pain in thoracic spine | CPT/HCPCS: 96127 ==

== ENCOUNTER 2024-09-01 06:35 | Outpatient (REF) | payer BC, SELFPAY ==
--- OUTSIDE RECORDS SUMMARY | 2024-09-01 06:38 | XMS_ITS ---
Author Organization [facility] Address [address] [place] [address] Care Team Providers Care Supervisor Electric Name Role Phone José Miguel Castro MD Primary Care Provider Massimo Franks Jr Allergies No Known Allergies REASON FOR VISIT Patient presents today for a discuss colonoscopy Immunizations Vaccine Route Administration Date Status Comme nts Influenza Unknown 07/21/2023 Refused Problems Problem Type SNOMED Code ICD Code Onset Dates Problem Status W/U Status Risk Notes Problem 672502214 FH: colon cancer (Z80.0) Active confirmed Problem 176279289 Encounter for other preprocedural examination (Z01.818) Active confirmed Vital Signs Temperature 98.0 degrees Fahrenheit 07/21/19 24 Blood pressure systolic 000 mm Hg 07/21/19 24 Blood pressure diastolic 00 mm Hg 024 Height 69 in 07/21/2023 Weight 186 lb 8 oz lbs 07/21/2023 BMI 27.54 kg/m2 07/21/2023 Encounters Encounter Location Date Provider Diagnosis [facility] [address] [facility] [place] [address] 07/21/2023 Massimo Armstrong Jr Colon cancer screening [...] MANE VALADEZ RDOB:0 1965 (58 yo M)Acc No.[id number]:07/21/2023 Progress Notes Patient:?EMILEE VALADEZ R Provider:?Massimo Armstrong MD :1965???Age:58 Y???Sex:Male Alexey e:07/21/2023 [facility] Pcp:José Miguel Castro MD Subjective: * Chief Complaints: * ???1. Patient presents today for a discuss colonoscopy. * HPI: ???New symptom(s):? 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
--- OUTSIDE RECORDS SUMMARY | 2024-09-01 06:38 | XMS_ITS | Patient Health Record ---
Author Organization [facility] Address [address] [place] [address] Care Team Providers Care Refrigeration Service Inspector Name Role Phone Po José Miguel DIAZ Primary Care Provider Masismo Franks Jr [phone] Allergies No Known Allergies Reason For Referral No Information Immunizations Vaccine Route Administration Date Status Comme nts Influenza Unknown 03/26/2018 Refused Influenza Unknown 07/21/2023 Refused Problems Problem Type SNOMED Code ICD Code Onset Dates Problem Status W/U Status Risk Notes Problem 146128070 Colon cancer screening (Z12.11) Active confirmed Problem 046852290 Encounter for other preprocedural examination (Z01.818) Active confirmed Problem 470348637 Irritable bowel syndrome with diarrhea (K58.0) Active confirmed Problem 72708419 Constipation, unspecified constipation type (K59.00) Active confirmed Problem 714108966 FH: colon cancer (Z80.0) Active confirmed Encounters Encounter Location Date Provider Diagnosis [facility] [address] [place] [address] 09/11/2023 Massimo Armstrong Jr Plan Of Treatment Future Test Test Name Order Date COLONOSCOPY 05/01/2016 COLONOSCOPY 07/21/2023 Insurance Providers Payer Name Payer Address Payer Phone Subscriber Number Group Number Insured Name Patient Relationship to Insured Coverage Start Date Coverage End Date [facility] [employer] PROFESSIONAL CLAIMS [address] [place] [address] [phone] [id number] [facility] MANE CRUZ Self - patient is the insured Medical (General) History Medical History History ICD Code Hyperlipidemia, diet controlled Depression/anxiety Low back pain Abdominal wall abscess Elevated blood pressure Colonoscopy, 07/05, normal, ten-year foll owup Surgical History Surgery Date(Month/Year) achilles tendon repair 2013 back surgery 2022 Abdominal wall abscess
--- OUTSIDE RECORDS SUMMARY | 2024-09-01 06:39 | XMS_ITS ---
Author Organization [facility] Address [address] [facility] [place] [address] Care Team Providers Care Rope Machine Setter Name Role Phone José Miguel Castro MD Primary Care Provider Massimo Franks Jr REASON FOR VISIT pathology Encounters Encounter Location Date Provider Diagnosis [facility] [address] [facility] [address] [place] [address] [place] [address] 09/11/2023 Massimo Armstrong Jr Plan Of Treatment No Information Progress Notes * MANE VALADEZ RDOB:0 1965 (58 yo M)Acc No.[id number]:09/11/2023 Patient:?EMILEE VALADEZ :1965???Age:58 Y???Sex:Male Address:[address], [place], [address] * true * Date:? Generated for Printi ng/Faxing/eTransmitting on:?09/01/2024 06:38 AM EDT
--- OUTSIDE RECORDS SUMMARY | 2024-09-01 06:39 | XMS_ITS ---
Author Organization [facility] Address [address] [place] [address] Care Team Providers Care Water Safety Instructor Name Role Phone José Miguel Castro MD Primary Care Provider Massimo Franks Jr REASON FOR VISIT screening,fam hx colon cancer Encounters Encounter Location Date Provider Diagnosis [facility] Outpatient [address] [place] [phone] 08/29/2023 Massimo Armstrong Jr Encounter for screening [...] MANE VALADEZ RDOB:0 1965 (59 yo M)Acc No.[id number]:08/29/2023 COLON WITH MAC Patient:?EMILEE VALADEZ Provider:?Massimo Armstrong MD :1965???Age:58 Y???Sex:Male Alexey e:08/29/2023 Address: [address], [place], [place] Pcp:José Miguel Castro MD Subjective: * Chief Complaints: * ???1. Screening,fam hx colon cancer. * Medical History:? Objective: * Vitals:? Assessment: * Assessment: 1.?Encounter for screening c olonoscopy - Z12.11 (Primary)???2.?Colon polyps - K63.5???3.?Other hemorrhoids - K64.8??? Plan: * Treatment: * Procedure Codes:?26544 COLON OSCOPY AND BIOPSY, Modifiers: PT * * The named appointment provid er may or may not be the originator of this progress note, and it is not deemed complete until electronically signed by the appointment provider. Sign off status: Pending * Provider:?Massimo Armstrong MD Date:?0 08/29/2023 Generated for Luis Carlos huff/Ninoska/eTransmitting on:?09/01/2024 06:38 AM EDT
[2024-09-01 06:51] LABS: MANUAL DIFF FLAG NO
[2024-09-01 07:25] LABS: Estimated Average Glucose 114 mg/dL; Hemoglobin A1C 149.5345 umol/L; Hemoglobin A1c % 5.6 % (<6.0); Total Hemoglobin (HGBA1C) 3920.5602 umol/L
[2024-09-01 07:54] LABS: Basophils Percent Auto 0.6 % (0-2); Eosinophils Absolute Auto 0.2 X10*3/uL (0.0-0.4); Eosinophils Percent Auto 3.5 % (0-4); Hematocrit 43.5 % (42.0-52.0); Imm Gran Abs Auto 0.02 X10*3/uL (0.00-0.03); Imm Gran Pct Auto 0.4 % (0.0-0.4); Lymphocytes Percent Auto 41.9 % (20-40); Mean Corpuscular HGB Conc 34.5 g/dl (31.0-36.0); Mean Corpuscular Hemoglobin 29.7 pg (27.0-33.0); Mean Corpuscular Volume 86.1 fL (80.0-98.0); Mean Platelet Volume 8.9 fL (9.4-12.4); Monocytes Absolute Auto 0.4 X10*3/uL (0.1-1.2); Monocytes Percent Auto 9.1 % (2-11); Neutrophils Absolute Auto 2.2 x10*3/uL (2.0-8.3); Neutrophils Percent Auto 44.5 % (45-73); Platelet Count 246 X10*3/uL (160-400); Red Blood Count 5.05 X10*6/uL (4.60-5.80); Red Cell Distribution Width 13.1 % (11.0-16.0); White Blood Count 4.8 X10*3/uL (4.8-10.8)
[2024-09-01 08:06] LABS: Alanine Aminotransferase 20 U/L (0-40); Albumin Level 4.2 g/dL (3.5-5.0); Alkaline Phosphatase 60 U/L (39-117); Anion Gap 12 (12-20); Aspartate Amino Transferase 17 U/L (5-37); Bilirubin Total 0.6 mg/dL (0.0-1.0); Blood Urea Nitrogen 22 mg/dL (9-16); Calcium 9.5 mg/dL (8.4-10.2); Carbon Dioxide 27 mmol/L (22-29); Chloride 106 mmol/L (96-108); Cholesterol 217 mg/dL (<200); Estimated Glomerular Filt Rate > 60; Glucose Random 88 mg/dL (60-115); HDL Cholesterol 50 mg/dL (>40); LDL Cholesterol Calculated 134 mg/dL (<100); Sodium 140 mmol/L (135-145); Total Protein 6.9 g/dL (6.5-8.0); Triglycerides 165 mg/dL (<150)
[2024-09-01 08:30] LABS: Folate 12.7 ng/mL (> or = 4.0); Prostate Specific Antigen Scr 0.82 ng/mL (<0.05-4.0); Vitamin B12 566 pg/mL (200-900)
[2024-09-01 08:38] LABS: Free T4 (Free Thyroxine) 0.87 ng/dL (0.71-1.85); Thyroid Stimulating Hormone 2.26 uIU/mL (0.32-4.0)
== END 2024-09-01 06:36 | disposition home or self-care (01) ==
LOC: HO.LAB 06:35
PROVIDERS: PCP Internal Medicine; Visit Provider Internal Medicine
DX: R73.02 Impaired glucose tolerance (oral) (principal); E78.00 Pure hypercholesterolemia, unspecified; Z12.5 Encounter for screening for malignant neoplasm of prostate
CPT/HCPCS: 36415; 80053; 80061; 82607; 82746; 83036; 84153; 84439; 84443; 85025

== ENCOUNTER 2024-09-20 09:06 | Outpatient (REF) | payer BC, SELFPAY ==
--- NOTE | ~2024-09-20 | XR_ITS ---
EXAMINATION: XR THORACIC SPINE CLINICAL INFORMATION: M54.6 - Pain in thoracic spine COMPARISON: None available. TECHNIQUE: 3 views of the thoracic spine were obtained. FINDINGS: Multiple syndesmophyte formation with endplate sclerosis and preservation of the intervertebral disc height involving the lower thoracic upper lumbar spine at least 5 consecutive vertebral bodies. No acute cortical disruption or malalignment. No lytic or blastic lesions. XR/XR thoracic spine 2V IMPRESSION: Consider DISH, lower thoracic upper lumbar spine. Electronically signed by: Luis Mauro MD 09/20/2024 01:27 PM EDT
--- OUTSIDE RECORDS SUMMARY | 2024-09-20 09:43 | XMS_ITS | Patient Health Record ---
Author Organization [facility] Address [address] [place] [address] Care Team Providers Care Mast Maker Name Role Phone Po José Miguel DIAZ Primary Care Provider Massimo Franks Jr Unavailable [phone] Allergies No Known Allergies Reason For Referral No Information Immunizations Vaccine Route Administration Date Status Comme nts Influenza Unknown 03/26/2018 Refused Influenza Unknown 07/21/2023 Refused Problems Problem Type SNOMED Code ICD Code Onset Dates Problem Status W/U Status Risk Notes Problem 165958041 Colon cancer screening (Z12.11) Active confirmed Problem 574529526 Encounter for other preprocedural examination (Z01.818) Active confirmed Problem 673592787 Irritable bowel syndrome with diarrhea (K58.0) Active confirmed Problem 86652022 Constipation, unspecified constipation type (K59.00) Active confirmed Problem 701514120 FH: colon cancer (Z80.0) Active confirmed Plan Of Treatment Future Test Test Name Order Date COLONOSCOPY 05/01/2016 COLONOSCOPY 07/21/2023 Insurance Providers Payer Name Payer Address Payer Phone Subscriber Number Group Number Insured Name Patient Relationship to Insured Coverage Start Date Coverage End Date [facility] [place] [employer] [address] [place] [address] [phone] [id number] MANE CRUZ Self - patient is the insured Medical (General) History Medical History History ICD Code Hyperlipidemia, diet controlled Depression/anxiety Low back pain Abdominal wall abscess Elevated blood pressure Colonoscopy, 07/05, normal, ten-year foll owup Surgical History Surgery Date(Month/Year) achilles tendon repair 2013 back surgery 2022 Abdominal wall abscess
--- OUTSIDE RECORDS SUMMARY | 2024-09-20 09:43 | XMS_ITS ---
Author Organization 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 Name Role Phone José Miguel Castro MD Primary Care Provider Massimo Franks Jr Allergies No Known Allergies REASON FOR VISIT Patient presents today for a discuss colonoscopy Immunizations Vaccine Route Administration Date Status Comme nts Influenza Unknown 07/21/2023 Refused Problems Problem Type SNOMED Code ICD Code Onset Dates Problem Status W/U Status Risk Notes Problem 386425598 FH: colon cancer (Z80.0) Active confirmed Problem 550265792 Encounter for other preprocedural examination (Z01.818) Active confirmed Vital Signs Temperature 98.0 degrees Fahrenheit 07/21/19 24 Blood pressure systolic 000 mm Hg 07/21/19 24 Blood pressure diastolic 00 mm Hg 024 Height 69 in 07/21/2023 Weight 186 lb 8 oz lbs 07/21/2023 BMI 27.54 kg/m2 07/21/2023 Encounters Encounter Location Date Provider Diagnosis [facility] [address] [facility] [place] [address] 07/21/2023 Massimo Armstrong Jr Colon cancer screening [...] MANE VALADEZ RDOB:0 1965 (58 yo M)Acc No.[id number]:07/21/2023 Progress Notes Patient:?EMILEE VALADEZ R Provider:?Massimo Armstrong MD :1965???Age:58 Y???Sex:Male Alexey e:07/21/2023 [facility] Pcp:José Miguel Castro MD Subjective: * Chief Complaints: * ???1. Patient presents today for a discuss colonoscopy. * HPI: ???New symptom(s):? 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
--- OUTSIDE RECORDS SUMMARY | 2024-09-20 09:44 | XMS_ITS ---
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 Name Role Phone José Miguel Castro MD Primary Care Provider Massimo Franks Jr [phone] REASON FOR VISIT screening,fam hx colon cancer Encounters Encounter Location Date Provider Diagnosis [facility] Outpatient [address] [place] [phone] 08/29/2023 Massimo Armstrong Jr Encounter for screening [...] MANE VALADEZ RDOB:0 1965 (59 yo M)Acc No.[id number]:08/29/2023 COLON WITH MAC Patient:?EMILEE VALADEZ Provider:?Massimo Armstrong MD :1965???Age:58 Y???Sex:Male Alexey e:08/29/2023 Address: [address], [place], [place] Pcp:José Miguel Castro MD Subjective: * Chief Complaints: * ???1. Screening,fam hx colon cancer. * Medical History:? Objective: * Vitals:? Assessment: * Assessment: 1.?Encounter for screening c olonoscopy - Z12.11 (Primary)???2.?Colon polyps - K63.5???3.?Other hemorrhoids - K64.8??? Plan: * Treatment: * Procedure Codes:?83716 COLON OSCOPY AND BIOPSY, Modifiers: PT * * The named appointment provid er may or may not be the originator of this progress note, and it is not deemed complete until electronically signed by the appointment provider. Sign off status: Pending * Provider:?Massimo Armstrong MD Date:?0 08/29/2023 Generated for Luis Carlos huff/Ninoska/Teresasmitting on:?09/20/2024 09:43 AM EDT
--- OUTSIDE RECORDS SUMMARY | 2024-09-20 09:44 | XMS_ITS ---
Author Organization [facility] Address [address] [facility] [place] [address] Care Team Providers Care Drop Forger Name Role Phone José Miguel Castro MD Primary Care Provider Massimo Franks Jr REASON FOR VISIT pathology Encounters Encounter Location Date Provider Diagnosis [facility] [address] [facility] [address] [place] [address] [place] [address] 09/11/2023 Massimo Armstrong Jr Plan Of Treatment No Information Progress Notes * MANE VALADEZ RDOB:0 1965 (58 yo M)Acc No.[id number]:09/11/2023 Patient:?EMILEE VALADEZ :1965???Age:58 Y???Sex:Male Address:[address], [place], [address] * true * Date:? Generated for Printi ng/Faxing/eTransmitting on:?09/20/2024 09:43 AM EDT
== END 2024-09-20 09:07 | disposition home or self-care (01) ==
LOC: HO.XRAY 09:06
PROVIDERS: PCP Internal Medicine; Visit Provider Internal Medicine
DX: M54.6 Pain in thoracic spine (principal)
CPT/HCPCS: 72070

== ENCOUNTER → 2024-09-20 09:09 | Outpatient (BNV) | payer BC, SELFPAY | PROVIDERS: PCP Internal Medicine; Visit Provider Radiology Diagnostic Radiology | DX: M54.6 Pain in thoracic spine (principal) | CPT/HCPCS: 72070 ==

== ENCOUNTER 2024-10-04 08:15 | Outpatient (REF) | payer BC, SELFPAY ==
[2024-10-04 09:54] LABS: Erythrocyte Sedimentation Rate 11 MM/HR (0-15)
[2024-10-04 09:58] LABS: C Reactive Protein < 0.04 mg/dL (< or = 0.50)
[2024-10-07 18:28] LABS: HLA B27 Negative (Negative)
== END 2024-10-04 08:16 | disposition home or self-care (01) ==
LOC: HO.LAB 08:15
PROVIDERS: PCP Internal Medicine; Visit Provider Internal Medicine
DX: M54.6 Pain in thoracic spine (principal)
CPT/HCPCS: 36415; 85652; 86140; 86812